=== PATIENT | female | born 1975 | race Caucasian/White ===

== ENCOUNTER → 2018-02-15 16:22 | Outpatient (CLI) | payer OTHER, SELFPAY ==
[2018-02-20 09:25] LABS: HPV Reflexed? NOT INDICATED
== END ==
PROVIDERS: Visit Provider Obstetrics & Gynecology
DX: N39.0 Urinary tract infection, site not specified (principal); Z12.4 Encounter for screening for malignant neoplasm of cervix
CPT/HCPCS: 87086; 88175; G0145

== ENCOUNTER → 2018-06-17 07:24 | Outpatient (CLI) | payer OTHER, SELFPAY ==
--- NOTE | 2018-06-17 07:09 | BI_ITS ---
MAMMOGRAPHY - BILATERAL SCREENING REASON FOR EXAM: Female, 42 years old. Routine annual screening examination. PERTINENT HISTORY: Grandmother with breast cancer. TECHNIQUE: Digital bilateral breast elian (3D mammographic acquisition) in the CC and MLO projections. 2-D mediolateral oblique (MLO) and craniocaudad (CC) views of both breasts were obtained. CAD: Full Field Digital Mammography with Computer Added Detection was performed. COMPARISON: Comparison is made with prior examination dated September 16, 2014. FINDINGS: Breast Composition: There are scattered areas of fibroglandular density. There are no dominant masses or suspicious calcifications. No other significant abnormalities are identified. There has been no significant change since the prior study. BI/SCREENING MAMM (CAD), BILAT IMPRESSION: Stable bilateral screening mammogram. Yearly follow-up mammogram recommended. (A) ASSESSMENT CATEGORY: BIRADS Category 1: Negative. A letter regarding these results will be sent to the patient by the facility within 30 days. Approximately 10% of breast cancers are not detected by mammography. A normal mammogram should not delay biopsy of a clinically suspicious abnormality. [id number] Electronically Signed: Nash Patrick, at 10:28 EDT , Service support ,
== END ==
PROVIDERS: Family Provider Nurse Practitioner Family; PCP Nurse Practitioner Family; Referring Provider Obstetrics & Gynecology; Visit Provider Obstetrics & Gynecology
DX: Z12.31 Encounter for screening mammogram for malignant neoplasm of breast (principal)
CPT/HCPCS: 77063; 77067

== ENCOUNTER → 2019-09-03 06:54 | Outpatient (CLI) | payer OTHER, SELFPAY ==
--- NOTE | 2019-09-02 16:40 | BI_ITS ---
MAMMOGRAPHY - BILATERAL SCREENING 3-D TOMOSYNTHESIS REASON FOR EXAM: Female, 43 years old. Routine screening PERTINENT HISTORY: BILAT SCREENING - FAM HX OF MATERNAL GRANDMOTHER @ AGE ? - NO PREV SURG''S. TECHNIQUE: 2-D mammograms and 3-D Tomosynthesis of the breast (s) were performed. CAD was performed. COMPARISON: 06/17/2018 FINDINGS: The breast composition is composed of scattered fibroglandular density. Scattered benign calcifications are seen. No dense spiculated masses or suspicious microcalcifications are identified. No architectural distortion is identified. There is no skin thickening or retraction. There has been no significant change since the prior study. BI/SCREEN MAMM (CAD) W/YUSUF BILAT IMPRESSION: No mammographic signs of malignancy. Routine yearly mammograms recommended. ASSESSMENT CATEGORY: BIRADS Category 1: Negative. A letter regarding these results will be sent to the patient by the facility within 30 days. FOLLOW UP RECOMMENDATION: Yearly follow up mammogram recommended. (A) Approximately 10% of breast cancers are not detected by mammography. A normal mammogram should not delay biopsy of a clinically suspicious abnormality. Electronically Signed: Fernando Powers MD at 7:51 EDT , Service support ,
== END ==
PROVIDERS: PCP Nurse Practitioner Family; Referring Provider Obstetrics & Gynecology; Visit Provider Obstetrics & Gynecology
DX: Z12.31 Encounter for screening mammogram for malignant neoplasm of breast (principal)
CPT/HCPCS: 77063; 77067

== ENCOUNTER → 2020-04-21 13:56 | Outpatient (CLI) | payer OTHER, SELFPAY ==
[2020-04-27 14:29] LABS: HPV Reflexed? NOT INDICATED
== END ==
PROVIDERS: PCP Nurse Practitioner Family; Visit Provider Obstetrics & Gynecology
DX: Z12.4 Encounter for screening for malignant neoplasm of cervix (principal)
CPT/HCPCS: 88175; G0145

== ENCOUNTER → 2020-10-13 06:58 | Outpatient (CLI) | payer OTHER, SELFPAY ==
--- NOTE | 2020-10-13 07:00 | BI_ITS ---
MAMMOGRAPHY - BILATERAL SCREENING REASON FOR EXAM: Female, 44 years old. Routine annual screening examination. PERTINENT HISTORY: Screening TECHNIQUE: Digital bilateral breast yusuf (3D mammographic acquisition) in the CC and MLO projections. 2-D mediolateral oblique (MLO) and craniocaudad (CC) views of both breasts were obtained. CAD: Full Field Digital Mammography with Computer Added Detection was performed. COMPARISON: 09/02/2019 FINDINGS: Breast Composition: Scattered There are no dominant masses or suspicious calcifications. No other significant abnormalities are identified. BI/SCRN MAMM (CAD)W/YUSUF BILAT IMPRESSION: Stable bilateral screening mammogram. Yearly follow-up mammogram recommended. (A) ASSESSMENT CATEGORY: BIRADS Category 1: Negative. A letter regarding these results will be sent to the patient by the facility within 30 days. Approximately 10% of breast cancers are not detected by mammography. A normal mammogram should not delay biopsy of a clinically suspicious abnormality. [id number] Electronically Signed: Aren Tipton DO at 15:45 EDT Tel , Service support ,
== END ==
PROVIDERS: PCP Nurse Practitioner Family; Referring Provider Obstetrics & Gynecology; Visit Provider Obstetrics & Gynecology
DX: Z12.31 Encounter for screening mammogram for malignant neoplasm of breast (principal)
CPT/HCPCS: 77063; 77067

== ENCOUNTER → 2021-10-25 | Outpatient (CLI) | payer OTHER, SELFPAY ==
[2021-10-25 17:32] LABS: Absolute Lymphocyte Count 3.36 X10^3/uL (0.83-4.51); Absolute Neutrophil Count 4.2 X10^3/uL (2.0-7.7); Basophil# 0.03 X10^3/uL; Basophil% 0.4 % (0-1); Eosinophil# 0.15 X10^3/uL; Eosinophils% 1.8 % (0-5); Hematocrit 38.5 % (37-47); Hemoglobin 13.2 g/dL (12.0-15.0); Lymphocyte # 3.36 X10^3/ul (0.83-4.51); Lymphocyte % 40.6 % (19-41); Mean Corp Hgb Conc 34.3 g/dL (32-36); Mean Corpuscular Hgb 30.4 pg (27.0-32.0); Mean Corpuscular Volume 88.7 fL (81-99); Mean Platelet Vol. 10.1 fl (6.2-12.0); Monocyte# 0.56 X10^3/uL; Monocyte% 6.8 % (0-10); NRBC Flagged by Analyzer 0 % (0-5); Neutrophil # 4.15 X10^3/uL (2.7-7.7); Neutrophil % 50.2 % (47-70); Platelet Count 356 K/mm3 (150-450); RBC Distribution Width CV 12.3 % (11.6-14.6); RBC Distribution Width SD 40.1 fl (35.1-43.9); Red Blood Count 4.34 M/mm3 (4.2-5.4); White Blood Count 8.3 K/mm3 (4.4-11.0)
[2021-10-25 17:39] LABS: Luteinizing Hormone 5.5 mIU/mL; Prolactin 10.2 ng/mL
== END | disposition home or self-care (01) ==
LOC: WOBLAB 15:43
PROVIDERS: PCP Nurse Practitioner Family; Visit Provider Obstetrics & Gynecology
DX: N93.9 Abnormal uterine and vaginal bleeding, unspecified (principal)
CPT/HCPCS: 36415; 83001; 83002; 84146; 85025

== ENCOUNTER → 2021-12-14 | Outpatient (CLI) | payer OTHER, SELFPAY ==
--- NOTE | 2021-12-14 07:42 | BI_ITS ---
MAMMOGRAPHY - BILATERAL SCREENING REASON FOR EXAM: Female, 45 years old. Routine annual screening examination. PERTINENT HISTORY: Grandmother with breast cancer. TECHNIQUE: Digital bilateral breast yusuf (3D mammographic acquisition) in the CC and MLO projections. 2-D mediolateral oblique (MLO) and craniocaudad (CC) views of both breasts were obtained. CAD: Full Field Digital Mammography with Computer Added Detection was performed. COMPARISON: Comparison is made with prior study of 10/13/2020 and 09/02/2019. FINDINGS: Breast Composition: There are scattered areas of fibroglandular density. There are no dominant masses or suspicious calcifications. No other significant abnormalities are identified. There has been no significant change since the prior study. BI/SCRN MAMM (CAD)W/YUSUF BILAT IMPRESSION: Stable bilateral screening mammogram. Yearly follow-up mammogram recommended. (A) ASSESSMENT CATEGORY: BIRADS Category 1: Negative. A letter regarding these results will be sent to the patient by the facility within 30 days. Approximately 10% of breast cancers are not detected by mammography. A normal mammogram should not delay biopsy of a clinically suspicious abnormality. [id number] Electronically Signed: Nash Patrick MD at 9:11 EDT ,
== END | disposition home or self-care (01) ==
LOC: OPBI 07:37
PROVIDERS: PCP Nurse Practitioner Family; Visit Provider Obstetrics & Gynecology
DX: Z12.31 Encounter for screening mammogram for malignant neoplasm of breast (principal); Z80.3 Family history of malignant neoplasm of breast
CPT/HCPCS: 77063; 77067

== ENCOUNTER 2022-01-24 09:47 | Observation (INO) | payer OTHER, SELFPAY ==
[2022-01-18 12:53] LABS: Absolute Lymphocyte Count 2.48 X10^3/uL (0.83-4.51); Absolute Neutrophil Count 5.2 X10^3/uL (2.0-7.7); Basophil# 0.03 X10^3/uL; Basophil% 0.4 % (0-1); Eosinophil# 0.16 X10^3/uL; Eosinophils% 1.9 % (0-5); Hematocrit 40.2 % (37-47); Hemoglobin 13.3 g/dL (12.0-15.0); Lymphocyte # 2.48 X10^3/ul (0.83-4.51); Lymphocyte % 29.6 % (19-41); Mean Corp Hgb Conc 33.1 g/dL (32-36); Mean Corpuscular Hgb 29.1 pg (27.0-32.0); Mean Platelet Vol. 9.9 fl (6.2-12.0); Monocyte# 0.51 X10^3/uL; Monocyte% 6.1 % (0-10); NRBC Flagged by Analyzer 0 % (0-5); Neutrophil # 5.17 X10^3/uL (2.7-7.7); Neutrophil % 61.8 % (47-70); Platelet Count 296 K/mm3 (150-450); RBC Distribution Width CV 12.6 % (11.6-14.6); RBC Distribution Width SD 40.9 fl (35.1-43.9); Red Blood Count 4.57 M/mm3 (4.2-5.4); White Blood Count 8.4 K/mm3 (4.4-11.0)
[2022-01-18 13:10] LABS: Magnesium 2.1 mg/dL (1.6-2.6)
--- NOTE | 2022-01-22 10:27 | HP.PCM_ITS ---
History and Physical Date of Admission: 01/24/22 MR#: [id number] Acct: [id number] Name:NOBLE VILLAFUERTE Rep #: [id number] : 1975 ? ? Provider: Dr. Kathy Barth, Age/Sex:? 46/F ? ? Location: [facility] [place] Status: Signed Intake Vital Signs ? 10/04/2109:15 12/28/2207:09 Height ? 5 ft 7 in Weight: ? 223 lb BMI ? 34.9 BP ? 100/62 Intake Visit Reasons:?Surgical consult, records coming from [place] Chief Complaint: surgical consult Vending Machine Host/Hostess Required: No Is patient in pain?: Yes Allergies No Known Allergies Allergy (Verified 12/24/13 09:14) Medications atorvastatin 10 mg tablet (Lipitor) 10 mg PO DAILY 12/27/21 [History Confirmed 1 ] colestipol 1 gram tablet 1 g PO ONCE 12/27/21 [History Confirmed 12/27/21] norgestimate 0.25 mg-ethinyl estradiol 35 mcg tablet (Sprintec (28)) 1 tab PO DAILY 12/27/21 [History Confirmed 12/27/21] Is last menstrual period known: Yes Last Menstrual Period: 12/11/21 Post menopausal: No Patient : No : [facility] Medical History?(Updated 12/27/21 @ 16:[address] Kathy Barth, DO) History of PCOS Hyperlipidemia Uterine fibroid Surgical History?(Updated 12/27/21 @ 08:15 by Deborah Mathis) delivery delivered History of hernia surgery Hx of appendectomy Hx of cholecystectomy Hx of LASIK Uterine fibroid Family History?(Updated 12/27/21 @ 08:13 by Deborah Mathis) Father Myocardial infarctionGrandmother Breast cancer Social History?(Updated 12/27/21 @ 08:14 by Deborah Mathis) Smoking Status:? Never smoker alcohol intake:? current details:? social substance use type:? does not use what type of physical activity do you participate in:? none seatbelt use:? always do you feel safe at home:? Yes additional social history:? 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 HPI Surgical consult, records coming from [place] Details: NOBLE DAVIDSON is a 46 year old ( sections) who presents for discussion about hysterectomy. She has heavy menses and has been diagnosed with an enlarged fibroid uterus by [employer] employee [employer] [facility]. She states that she has bleeding every other week and even some spotting in between. She takes sprintec ocps without relief. She has a surgical history of? delivery, hernia repair x 2 (one as a child, one as an adult on the anterior abdominal wall, appendectomy, cholecystectomy, LASIK, Dilation and curettage, and Uterine fibroid removal years prior to having her children. She states that she is ready to have her uterus removed. ultrasound shows 6 fibroids measuring all less than 3 cm and the size of the uterus in it's greatest dimension is 8 cm. Female Reproductive History Last Menstrual Period: 12/11/21 History ? ? ? 1 ? Elective abortions ? Hx Para ? ? ? 1 ? Spontaneous abortions ? Hx # Term Pregnancies ? Ectopic pregnancies ? Hx # Pregnancies ? Multiple births ? # of living children ? Past Pregnancies Del. Date Name GA/Weeks Outcome Route Bth Weight Infant Gen Labor Lgth Anesthesia Del Locatn Provider FOB Unknown 2010 ? live - full term C-s ection ? ROS Const ROS Unobtainable: All systems reviewed & are unremarkable except as noted in H Resp Resp: Reports system reviewed and no additional complaints, except as documented; Denies cough GI GI: Reports as per HPI Psych Psych: Reports system reviewed and no additional complaints, except as documented Exam Const General: cooperative, healthy appearing, comfortable and no acute distress Resp Effort & Inspection: normal respiratory effort Skin General: no rashes or lesions noted Psych Appearance: grossly normal Speech and Movement: speech and movement normal Coding Level of Care Code Off vis,new,level 5 Diagnoses Abnormal uterine bleeding? N93.9 Uterine fibroid? D25.9 Assessment and Plan Assessment and Plan (1) Abnormal uterine bleeding: ?Status:?Acute (2) Uterine fibroid: ?Status:?Acute ?Comment: 6 fibroids noted on ultrasound Plan After discussing the patient's diagnosis and treatment plan options, patient wishes to proceed with surgical management. The plan is to proceed with a total robotic hysterectomy, bilateral salpingectomy, and cystoscopy. Likely will also perform lysis of adhesions and may need to perform a left upper quadrant entry due to h/o abdominal surgeries. ? I have discussed with the patient the risks, benefits, and alternatives of the procedure which include but are not limited to risks of anesthesia, bleeding, infection, possible damage to bowel, bladder, or surrounding vasculature which could lead to additional surgery to evaluate any complications.? Patient agrees to procedure and wishes to proceed.? ACOG/uptodate references given for additional information regarding procedure.? 12/27/21 [id number] <Electronically signed by Kathy Barth DO> UPDATE- I have seen the patient and performed any clinically relevant updates to the history and physical exam. Kathy Barth, DO
[2022-01-24] VITALS (14 sets, daily range): BP systolic 126–147; BP diastolic 90–107; PULSE 82–100; RESP 14–20; TEMP 36–37; O2SAT 96–100; BMI 34.7
[2022-01-24] MEDS: Magnesium 1 GM over 15 mins IV (06:09)
[2022-01-24 06:14] LABS: Internal QC Validated? YES +Cl - CLEAR BKGD; Pregnancy, Urine Negative Negative
[2022-01-24] MEDS: Phenazopyridine 95 MG Tablet 190 MG PO (06:39)
[2022-01-24] MEDS: Gabapentin 600 MG Tablet PO (06:40)
[2022-01-24] MEDS: Celecoxib 200 MG Capsule 400 MG PO (06:40)
[2022-01-24] MEDS: Acetaminophen 500 MG Tablet 1000 MG PO ×3 (06:40→17:40)
[2022-01-24] MEDS: Enoxaparin 40 MG/0.4 ML Syringe SC (06:40)
[2022-01-24] MEDS: dexAMETHasone 10 MG/ML Vial 8 MG IV (06:41)
[2022-01-24] MEDS: Scopolamine 1mg/72hr Patch 1 PATCH TD (06:42)
[2022-01-24] MEDS: Insulin Lispro 100 UNIT/ML INSULN.PEN SC (06:42)
[2022-01-24] MEDS: Lactated Ringers 1,000 ML 40 ML IV (06:42)
[2022-01-24] MEDS: Cefazolin 2 GM in 0.9% Normal Saline 100 ML IV (07:24)
--- NOTE | 2022-01-24 07:29 | PCM.DC ---
Discharge Instructions Diet Discharge Diet: No restrictions Activity May resume sexual activity in: 6 weeks Weight Bearing Status: Full weight bearing Dressing / Incision Call your doctor if your incision/area has: Continuous Slow Oozing, Sudden Increased Bleeding, Increased Pain/ Swelling, Increased Redness and Foul Smelling Discharge Call your doctor if you observe: Fever of 101 or Higher, Using more than 1 pad per hour, Shortness of breath, Chest pain and Uncontrolled pain Suture Line Care: Avoid Pulling/Pushing and Avoid Pinching/Bending Remove Dressing in: 1 week (if present) Cleanse incision/area with: Soap & Water and Keep Dressing Clean & Dry Follow Up Care Please Follow Up With: Kathy Barth DO When: Call to make an appointment with your doctor for a postop visit in 2 and 6 weeks Test Results: Test results from this visit will be discussed in further detail at your follow-up appointment, if applicable. Discharge Plan Admission Primary Reason for Your Visit: robotic hysterectomy Attending Provider: Kathy Barth Primary Care Provider: Care Physician,No Primary Consulting Providers: Hamlet Sanders Discharge Orders/Prescriptions Prescriptions: New ibuprofen 800 mg tablet 800 mg PO Q8H PRN (Reason: pain) 7 Days Qty: 30 0RF oxycodone-acetaminophen [Percocet] 5-325 mg tablet 1 tab PO Q4H PRN (Reason: pain) 7 Days Qty: 30 0RF Continued atorvastatin [Lipitor] 10 mg tablet 10 mg PO QHS colestipol 1 gram tablet 1 g PO QHS Held acetaminophen [Tylenol] 325 mg Tablet 650 mg PO Q4H PRN (Reason: Pain) Hold Instructions: Resume on 02/07/22. Other Ambulatory Orders: ,Urine (Routine) Timeframe: [id number] Facility: [facility] - Location: Laboratory Ordered By: Dr. Kathy Barth Referrals / Follow Up: Care Physician,No Primary [Primary Care Provider] - Disposition Disposition (needs filled in before D/C Order can be placed): Home, Self Care
--- NOTE | 2022-01-24 07:30 | HYST_PTH ---
PATIENT: NOBLE DAVIDSON LOC: MS3 U#:[id number] AGE/SX: 46/F ROOM: MS312 RE01/24/[address]: Dr. Kathy Barth DO : 1975 BED: 1 DIS: 01/25/2022 SPEC #: [id number] RECD: 01/24/22 12:53 STATUS: MATT BELL #: [id number] JACK: 01/24/22 07:[address]: Kathy Barth DEPT: SURGICAL PATHOLOGY RECD BY: Minerva Tatum ENTERED: 01/24/22 13:17 SP TYPE: HYSTERECT OTHR DR: Dr. Hamlet Sanders MD No Primary Care Phys Tissues: Uterus, NOS Procedures: Surgery Specimen Level V HEADER OPERATION: ERAS, total hysterectomy, salpingectomy and cystoscopy PRE-OP DIAGNOSIS: None given TISSUE SUBMITTED: Uterus, cervix, bilateral fallopian tubes MICROSCOPIC DIAGNOSIS Uterus, cervix, bilateral fallopian tubes, hysterectomy and bilateral salpingectomy: Cervix ? focal cystic change. Endometrium ? secretory endometrium. Myometrium ? submucosal and subserosal leiomyomas (largest measuring 1.5 cm in greatest dimension). Bilateral fallopian tubes - no pathologic diagnosis. /SJ 01/25/22 MICROSCOPIC DESCRIPTION Slides are reviewed. GROSS DESCRIPTION Received in fixative is one container labeled with the patient's name and designated uterus. The specimen consists of a hysterectomy specimen consisting of uterus with cervix and attached left fallopian and detached right fallopian tube. The uterus with cervix weighs 54 gm and measures 8 x 5 x 3 cm. The serosal surface is smooth. The ectocervical mucosa is unremarkable. The external os is slit in contour. The endocervical canal measures3 cm in length and the endocervical mucosa is unremarkable. The triangular endometrial cavity measures 4 cm in length and 2 cm in width. The endometrium is hall glistening and measures 0.1 cm in thickness. Section of uterine wall reveal multiple sumucosal and subserosal nodular masses, largest mass is subserosal and measures 1.5 cm in greatest dimension. Uterine wall measures up to 2.0 cm in thickness. Right and left fallopian tubes each measure 6.5 cm in length and 0.5 cm in diameter. Fimbrial end is identified. Sections reveal unremarkable cut surfaces. Machine Tailer sections are submitted in 9 cassettes as follows: 1 - anterior cervix, 2 - posterior cervix, 3 & 4 - anterior uterine wall, 5 & 6 - posteror uterine wall, 7 p nodular masses, 8 ? right fallopian tube, 9 ? left fallopian tube. /STEVEN:sabrina 01/24/2022 TC:1 CPT: 94495
[2022-01-24 07:35] LABS: Bedside Glucose 188 mg/dL (74-106)
[2022-01-24] MEDS: Bupivacaine 0.25% 30 ML Vial (09:30)
--- NOTE | 2022-01-24 09:36 | PCM.OP.BLANK ---
Problems Associated Problem List Diagnoses (1) Abnormal uterine bleeding: (2) Uterine fibroid: Operative Report Date of Procedure: 01/24/22 Preoperative diagnosis: Menorrhagia, fibroid uterus, obesity, history of multiple abdominal surgeries Postoperative diagnosis: Menorrhagia, fibroid uterus, obesity, history of multiple abdominal surgeries Procedure: Total robotic hysterectomy bilateral salpingectomy, lysis of adhesions, and cystoscopy Surgeon: Dr. Kathy Barth DO Material Reprocessing Associate: DAYANARA Chong Intraoperative consultation: Dr. Darinel Delacruz MD Anesthesia: General endotracheal intubation Estimated blood loss: 100cc Urine output:600 Fluids given: 1100 cc crystalloid Drains: None Implanted material: None Complications: None Findings:8 cm size uterus, normal appearing ovaries and tubes. On exploration of the abdominal cavity the uterus, adnexa, bowel, and liver were found to be normal with exception of some trapped air between the greater and lesser omentum. Cystoscopy showed no evidence of leaking at approximately 250 cc of normal saline, positive ureteral orifices and jet flow are seen and no suture material was appreciated in the bladder. Specimens removed: Uterus and cervix, Bilateral tubes Reason for surgery: This is a 46-year-old who presented to my office with history of prior sections, history of myomectomy, history of cholecystectomy, ruptured appendix, and 2 abominal wall hernia repairs as well as obesity and heavy menses. After a long discussion about conservative versus surgical management the patient chose to proceed with hysterectomy. The planned procedure is for a robotic hysterectomy the risks benefits and alternatives were discussed with the patient the patient had a clear understanding of the procedure and a consent form was signed. Procedure: The patient was placed in the dorsal low lithotomy position and prepped and draped in the normal sterile fashion both abdominally and in the perineum. Her legs were placed in stirrups a Ogden catheter was inserted into the urethra without difficulty. A weighted speculum was placed in the vagina and a single-tooth tenaculum was used to grasp the anterior lip of the cervix. A Vcare uterine manipulator was inserted through the cervix without complication. It was then tied into place at the 2 and 10:00 locations on the cervix. Gloves were changed and attention was turned towards the abdomen. Due the multiple abdominal surgeries, the decision was made to enter the abdomen in the left upper quadrant. The patient had an OG tube placed and after marcaine injection an 8 mm incision was made followed by insertion of a 5 mm visiport trocar using a 5 mm laparoscope. Approximately 23 cm above the pubic symphysis in the midline, and after Marcaine injection, a [8] mm incision was made. An 8 mm trocar was inserted. Good abdominal placement was noted and no complications were appreciated. An air seal device was utilized to create pneumoperitoneum. At 12 cm lateral to the midline on the left and right sides 8 mm accessory ports were placed. Next a left upper quadrant 8 mm operating room assistant port site was placed. The patient was placed in steep Trendelenburg position. The robot was docked. The hysterectomy was initiated first by taking down the round ligament on each side using the vessel sealer device. The fallopian tubes were grasped and the underlying mesosalpinx was cauterized and cut. The broad ligament was then and taken down using the vessel sealer device. Next the bladder flap was taken down starting with dense adhesions from prior sections. These were removed without complication. This was done using monopolar cautery to the level of the cervical vaginal junction. After the bladder flap was created, uterine vessels were then isolated and cauterized using the vessel sealer device and EndoShears. At this point the uterine vessels were taken down further starting from the ascending branch, dissecting along the edges of the cervix to the level of the cervical vaginal junction with hemostasis appreciated. The cervical vaginal junction was then using monopolar cautery in a circumferential pattern across the superior aspect of the cervix. The specimen was delivered through the vagina and sent to pathology. The remaining vaginal cuff was then closed using OV lock suture. This was performed in a running technique. Excellent hemostasis was obtained and good closure was noted. Irrigation was then performed. All operative sites were noted to be hemostatic.There was noted to be some air bubbles present between the lesser and greater omentum and Dr. Delacruz from general surgery was called to examine the bowel and stomach. After momved the omentum from side to side and examined the transverse colon he came the conclusion that everything looked ok but to monitor the patient overnight. A cystoscopy was performed with a 70 degree cystoscope through the urethra into the bladder without complication. The bladder was instilled with approximately 250 cc of normal saline. Intraoperative images were made. Ureteral orifices and jets were identified. No suture material was appreciated in the bladder. The bladder was then drained and cystoscope was removed. The abdominal cavity was again examined using the laparoscope after the robot was undocked. All operative sites were noted to be hemostatic. The trochars were removed under direct visualization without complication and pneumoperitoneum was reduced. At this point the skin was then closed using 4-0 Monocryl subcuticular stitch and sealed with surgical glue. The patient tolerated the procedure well sponge lap and needle counts were correct x2 the patient was taken to the recovery room in stable condition. Multi Select Codes Urinary/Genital Urinary/Genital CPT Codes: 08075 TLH+BS/O <250gr uterus and Other Procedure See Report (lysis of adhesions )
[2022-01-24] MEDS: Ondansetron 4 MG/2 ML Vial IV (09:45)
[2022-01-24 10:55] LABS: Bedside Glucose 132 mg/dL (74-106)
[2022-01-24] MEDS: Ketorolac 30 MG/ML Syringe IV ×2 (11:09→17:40)
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
[2022-01-24] MEDS: oxyCODONE 5 MG Tablet PO (12:41)
[2022-01-24] MEDS: Docusate Sodium 100 MG Capsule PO ×2 (12:41→21:17)
[2022-01-24] MEDS: 0.9% Saline Lock 10 ML Syringe IV (17:40)
[2022-01-24] MEDS: Atorvastatin Calcium 10 MG Tablet PO (21:17)
[2022-01-24] MEDS: Colestipol 1 GM TABLET PO (21:17)
[2022-01-25] MEDS: Acetaminophen 500 MG Tablet 1000 MG PO ×3 (00:06→12:46)
[2022-01-25] MEDS: 0.9% Saline Lock 10 ML Syringe IV ×2 (00:06→05:46)
[2022-01-25] MEDS: Ketorolac 30 MG/ML Syringe IV ×3 (00:07→12:47)
[2022-01-25 02:43] VITALS: BP 137/87; PULSE 100; RESP 18; TEMP 36.8; O2SAT 96
[2022-01-25 02:46] VITALS: BP 137/87; PULSE 100; RESP 18; TEMP 36.8; O2SAT 96
[2022-01-25 06:52] LABS: Hematocrit 38.8 % (37-47); Hemoglobin 12.7 g/dL (12.0-15.0); Mean Corp Hgb Conc 32.7 g/dL (32-36); Mean Corpuscular Hgb 28.8 pg (27.0-32.0); Mean Platelet Vol. 9.6 fl (6.2-12.0); Platelet Count 340 K/mm3 (150-450); RBC Distribution Width CV 13.1 % (11.6-14.6); RBC Distribution Width SD 42.1 fl (35.1-43.9); Red Blood Count 4.41 M/mm3 (4.2-5.4); White Blood Count 14.6 K/mm3 (4.4-11.0)
[2022-01-25 08:00] VITALS: RESP 18
[2022-01-25 08:45] VITALS: BP 121/85; PULSE 88; RESP 18; TEMP 36.2; O2SAT 98
[2022-01-25 09:00] VITALS: BP 121/85; PULSE 88; RESP 18; TEMP 36.2; O2SAT 98
[2022-01-25] MEDS: Docusate Sodium 100 MG Capsule PO (09:36)
[2022-01-25] MEDS: Ensure Plus High Protein 120 ML LIQUID PO (09:36)
--- NOTE | 2022-01-25 09:54 | PCM.PN.OB ---
Subjective Subjective pt is walking around room. She has her street clothes on and passing gas, having normal urinary function and asking for breakfast and when she may go home Objective Data Objective Data Vital Signs: Vital Signs Temp Pulse Resp BP Pulse Ox O2 Del Method O2 Flow Rate 97.2 F L 88 18 121/85 H 98 Room Air 4 01/25/22 08:45 01/25/22 08:45 01/25/22 08:45 01/25/22 08:45 01/25/22 08:45 01/25/22 08:45 01/25/22 02:46 Oxygen Flow Rate (L/min) 4 Oxygen Delivery Method Room Air Weight: 221 lb 12.56 oz Body Mass Index (BMI) 34.7 Intake & Output: Intake and Output for Last 24 Hours 01/23/22 01/24/22 01/25/22 23:59 23:59 23:59 Intake Total 1668 / 1668 600 / 600 Output Total 950 / 950 Balance 718 / 718 600 / 600 Lab / Micro Data Result Diagrams: 01/25/22 06:10 Labs: Laboratory Results - last 24 hr 01/24/22 10:35: POC Glucose 132 H 01/25/22 06:10: WBC 14.6 H, RBC 4.41, Hgb 12.7, Hct 38.8, MCV 88.0, MCH 28.8, MCHC 32.7, RDW Std Deviation 42.1, RDW Coeff of Sylvain 13.1, Plt Count 340, MPV 9.6 ROS Constitutional Constitutional: Reports systems reviewed and no addt'l complaints, except as documented Cardiovascular Cardiovascular: Denies chest pain, dizziness, dyspnea or irregular heart rhythm Respiratory/Chest Respiratory/Chest: Denies cough, pain on inspiration or shortness of breath at rest Gastrointestinal Gastrointestinal: Denies abdominal pain, nausea or vomiting Genitourinary Genitourinary: Denies burning urination Musculoskeletal Musculoskeletal: Denies muscle cramps, muscle spasms or muscle weakness Neurologic Neurologic: Denies confusion, dizziness, headache(s) or lack of coordination Psychiatric Psychiatric: Denies anxiety, behavioral changes or depression Physical Exam HEENT normocephalic Resp normal respiratory effort and normal air movement GI soft to palpation, non-tender and non-distended GI Narrative: incisions are clean, dry, intact and non-tender. Rectal Exam: other Other Details: Incision is clean, dry, and intact no CVA tenderness Extremity normal to inspection General Extremity: edema bilateral (trace ) Assessment & Plan (1) Status post hysterectomy: PLAN: Plan patient is s/p robotic hyst luq entry for mesh in umbilicus and multiple surgeries- POD 1 1. routine ERAS protocol postop care- increase ambulation, encourage oral intake and oral control of pain. lovenox and scds for dvt prophylaxis, patient stable for discharge to home likely after repeat cbc this afternoon. Had a slight increase in WBC count. if stable will send home.
[2022-01-25 12:17] LABS: Absolute Lymphocyte Count 3.87 X10^3/uL (0.83-4.51); Absolute Neutrophil Count 8.3 X10^3/uL (2.0-7.7); Basophil# 0.02 X10^3/uL; Basophil% 0.2 % (0-1); Eosinophil# 0.12 X10^3/uL; Eosinophils% 0.9 % (0-5); Hemoglobin 12.4 g/dL (12.0-15.0); Lymphocyte # 3.87 X10^3/ul (0.83-4.51); Lymphocyte % 29.3 % (19-41); Mean Corp Hgb Conc 32.6 g/dL (32-36); Mean Corpuscular Volume 88.8 fL (81-99); Mean Platelet Vol. 9.6 fl (6.2-12.0); Monocyte# 0.84 X10^3/uL; Monocyte% 6.3 % (0-10); NRBC Flagged by Analyzer 0 % (0-5); Neutrophil # 8.32 X10^3/uL (2.7-7.7); Neutrophil % 62.8 % (47-70); Platelet Count 323 K/mm3 (150-450); RBC Distribution Width CV 13.2 % (11.6-14.6); Red Blood Count 4.28 M/mm3 (4.2-5.4); White Blood Count 13.2 K/mm3 (4.4-11.0)
[2022-01-25] MEDS: oxyCODONE 5 MG Tablet PO (12:45)
[2022-01-25 13:21] VITALS: BP 122/83; PULSE 88; RESP 18; TEMP 36.8; O2SAT 100
== END 2022-01-25 13:39 | disposition home or self-care (01) ==
LOC: SDC 14:18 → MS3 14:18
PROVIDERS: Anesthesiology; Admitting Provider Obstetrics & Gynecology; Referring Provider Obstetrics & Gynecology; Visit Provider Obstetrics & Gynecology
PROC: 0UT90ZZ Resection of Uterus, Open Approach (ICD-10-PCS; CPT 58571; principal; 2022-01-24 07:10)
DX: D25.0 Submucous leiomyoma of uterus (principal); N92.0 Excessive and frequent menstruation with regular cycle; E66.9 Obesity, unspecified; N93.9 Abnormal uterine and vaginal bleeding, unspecified; D25.2 Subserosal leiomyoma of uterus; Z79.899 Other long term (current) drug therapy; E78.5 Hyperlipidemia, unspecified; Z68.34 Body mass index [BMI] 34.0-34.9, adult
CPT/HCPCS: 58571; S2900; 00840; 36415; 81025; 82962; 83735; 85025; 85027; 86850; 86900; 86901; 88307; 96374; 96376; 99218; 99251; J7120; A4216; G0378; G0463; J2405; J3475

== ENCOUNTER → 2022-06-14 | Outpatient (CLI) | payer OTHER, BC, SELFPAY | END | disposition home or self-care (01) | PROVIDERS: Visit Provider Advanced Practice Midwife | DX: N89.8 Other specified noninflammatory disorders of vagina (principal) | CPT/HCPCS: 87070; 87205 ==

== ENCOUNTER → 2023-03-26 | Outpatient (CLI) | payer OTHER, BC, SELFPAY ==
--- NOTE | 2023-03-26 07:25 | BI_ITS ---
MAMMOGRAPHY - BILATERAL SCREENING REASON FOR EXAM: Female, 47 years old. Routine annual screening examination. PERTINENT HISTORY: Grandmother with breast cancer. TECHNIQUE: Digital bilateral breast yusuf (3D mammographic acquisition) in the CC and MLO projections. 2-D mediolateral oblique (MLO) and craniocaudad (CC) views of both breasts were obtained. CAD: Full Field Digital Mammography with Computer Added Detection was performed. COMPARISON: Comparison is made with prior study December 14, 2021 and October 13, 2020. FINDINGS: Breast Composition: There are scattered areas of fibroglandular density. There are no dominant masses or suspicious calcifications. Stable small benign-appearing bilateral axillary lymph nodes. No other significant abnormalities are identified. There has been no significant change since the prior study. BI/SCRN MAMM (CAD)W/YUSUF BILAT IMPRESSION: Stable bilateral screening mammogram. Yearly follow-up mammogram recommended. (A) ASSESSMENT CATEGORY: BIRADS Category 2: Benign. A letter regarding these results will be sent to the patient by the facility within 30 days. Approximately 10% of breast cancers are not detected by mammography. A normal mammogram should not delay biopsy of a clinically suspicious abnormality. [id number] Electronically Signed: Nash Patrick MD at 8:29 EST ,
--- OUTSIDE RECORDS SUMMARY | 2023-03-26 07:38 | XMS RPT_ITS | CCD ---
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 Name Role Phone Rylie Kaura August Unavailable Unavailab le Latimer, Megan August Unavailable Unavailab le Latimer, Megan August Unavailable Unavailab le Latimer, Megan August Unavailable Unavailab le Latimer, Megan August Unavailable Unavailab le Latimer, Megan August Unavailable Unavailab le Thomae, Zackary R Unavailable Unavailable Latimer, Megan August Unavailable Unavailab le Thomae, Zackary R Unavailable Unavailable Thomae, Zackary R Unavailable Unavailable Latimer, Megan August Unavailable Unavailab le Thomae, Zackary R Unavailable Unavailable Erin Robbins Unavailable Unavailable Latimer, Megan August Unavailable Unavailab le Latimer, Megan Unavailable Unavailable Latimer, Megan J Unavailable Unavailable Latimer, Megan J Unavailable [phone] Unavailable Unavailable Ms. Megan Kaur August Primary Care Unava ilable Vincent, Ms. Guzman August Referring Unava ilable Dr. Taylor Gibbons Attending Unav ailable Vincent, Ms. Youngblooda August Primary Care Unava ilable Vincent, Ms. Youngblooda August Attending Unava ilable Vincent, Ms. Guzman August Referring Unava ilable Vincent, Ms. Guzman August Referring Unava ilable Letty Orantes Attending Unavailabl e Vincent, Ms. Youngblooda August Primary Care Unava ilable Chance Newman Referring Unavailable Letty Orantes Admitting Unavailable Letty Orantes Attending Unavailable Vincent, . Megan Beck Primary Care Unava rosendo Kaur, Ms. Megan Beck Primary Care Unava rosendo Alexandre, Ms. Leelee Lopes Attending Unavailable Nichole Tamayo Unavailable Nichole Bolaños Primary Care Provider [phone] ZACKARY ZENDEJAS Attending Unavailable ZACKARY ZENDEJAS Referring Unavailable NICHOLE TAMAYO Primary Care Unavailable NICHOLE TAMAYO Attending Unavailable NICHOLE TAMAYO Primary Care Unavailable BRIAN BE Attending UnavailNICHOLE Braun Primary Care Unavailable Allergies Allergy Classification Reported Allergen(s) Allergy Type Date of Onset Reaction(s) Facility Dairy (not specified as lactose intolerance) (3 sources) cow milk Food Allergy [facility] Work Phone: (1 source) Milk Products; Translations: [Milk Products] Propensity to adverse reactions to food (disorder) [facility] Repository (12 sources) cow milk; Translations: [MILK] Allergy to substance (finding) 3 [facility] 2 Repository (3 sources) cow milk allergenic extract Drug Allergy 3 [facility] Medications Current Medications Medication Drug Class(es) Dates Sig (Normalized) Sig (Original) atorvastatin 10 mg oral tablet (8 sources) HMG-CoA Reductase Inhibitor Start: 10-28-2021 End: 06-21-2022 take 1 tablet by mouth once daily atorvastatin (Lipitor) 10 mg tablet Indications: Mild hyperlipidemia Take 1 tablet (10 mg) by mouth once daily. 90 tablet 3 06/21/2022 Active colestipol hydrochloride 1000 mg oral tablet (15 sources) Bile Acid Sequestrant Start: 10-04-2020 End: 06-21-2022 take 1 tablet by mouth once daily as needed for diarrhea colestipol (Colestid) 1 gram tablet Indications: Bile salt-induced diarrhea Take 1 tablet (1 g) by mouth once daily. As needed for diarrhea 90 tablet 3 06/21/2022 Active nitrofurantoin, macrocrystals 25 mg / nitrofurantoin, monohydrate 75 mg oral capsule (4 sources) Nitrofuran Antibacterial Start: 12-11-2019 End: 10-04-2020 take 1 capsule by mouth once daily Nitrofurantoin Monohyd Macro 100 MG Oral Capsule TAKE 1 CAPSULE EVERY 12 HOURS DAILY. Quantity: 14 Refills: 0 Ordered: 11-Dec-2019 Megan Marsh Start : 11-Dec-2019 End : 04-Oct-2020 Complete Completed/Discontinued Medications Medication Drug Class(es) Dates Sig (Normalized) Sig (Original) busPIRone hydrochloride 5 mg oral tablet (6 sources) Start: 10-04-2020 take 1 tablet by mouth three times daily busPIRone HCl - 5 MG Oral Tablet Take 1 tablet three times daily Quantity: 90 Refills: 1 Ordered: 04-Oct-2020 Megan Marsh Start : 04-Oct-2020 Active calcium chloride 0.0014 meq/ml / potassium chloride 0.004 meq/ml / sodium chloride 0.103 meq/ml / sodium lactate 0.028 meq/ml injectable solution (2 sources) Start: 01-19-2023 End: 01-20-2023 lactated Ringer's infusion Ethinyl Estradiol / norgestimate (3 sources) Progestin, Estrogen End: 06-21-2022 take 1 tablet by mouth once daily norgestimate-ethin yl estradioL (Sprintec, 28,) 0.25-35 mg-mcg tablet Take 1 tablet by mouth once daily. 0 06/21/2022 Discontinued (Therapy completed) Problems Active Problems Problem Classification Problem Date Documented Da te Episodic/Chronic Anxiety disorders (14 sources) Anxiety; Translations: [Anxiety state, unspecified] Onset: 06-19-2022 06-19-2022 Chronic Disorders of lipid metabolism (17 sources) Hyperlipidemia; Translations: [Other and unspecified hyperlipidemia] Onset: 06-19-2022 06-21-2022 Chronic Genitourinary symptoms and ill-defined conditions (4 sources) Increased frequency of urination; Translations: [Urinary frequency] Episodic Menstrual disorders (8 sources) Irregular periods; Translations: [Irregular menstrual cycle] Onset: 06-19-2022 06-19-2022 Chronic Other endocrine disorders (2 sources) Polycystic ovary syndrome; Translations: [Polycystic ovarian syndrome] Onset: 10-25-2021 07-02-2022 Chronic Other gastrointestinal disorders (17 sources) Non-infective diarrhea; Translations: [Other specified intestinal malabsorption] Onset: 06-19-2022 06-25-2022 Chronic Other gastrointestinal disorders (4 sources) Other intestinal malabsorption; 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] Onset: 06-19-2022 Chronic Other gastrointestinal disorders (2 sources) Non-infective diarrhea; 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] Episodic Other lower respiratory disease (8 sources) H/O: respiratory disease; Translations: [Personal history of other diseases of respiratory system] Episodic Other nutritional; endocrine; and metabolic disorders (2 sources) Obesity; Translations: [Morbid (severe) obesity due to excess calories] Onset: 06-25-2022 06-25-2022 Chronic Other nutritional; endocrine; and metabolic disorders (2 sources) Severe obesity; Translations: [Morbid (severe) obesity due to excess calories] Onset: 06-25-2022 06-25-2022 Chronic Other screening for suspected conditions (not mental disorders or infectious disease) (12 sources) Patient encounter status; Translations: [Screening for diabetes mellitus] Onset: 06-21-2022 06-21-2022 Episodic Other upper respiratory disease (14 sources) Seasonal allergic rhinitis; Translations: [Allergic rhinitis, cause unspecified] Onset: 06-19-2022 06-19-2022 Chronic Residual codes; unclassified (11 sources) History finding; Translations: [Other specified conditions influencing health status] Episodic Unclassified (1 source) Contact with and (suspected) exposure to COVID-19; Translations: [Contact with and (suspected) exposure to COVID-19] Onset: 11-06-2021 Unclassified (3 sources) Personal history of COVID-19; Translations: [Personal history of COVID-19] Onset: 04-29-2021 Past or Other Problems Problem Classification Problem Date Documented Da te Episodic/Chronic Acute bronchitis (2 sources) Acute bronchitis, unspecified; Translations: [Acute bronchitis, unspecified] Onset: 07-28-2022 Episodic Allergic reactions (20 sources) Allergy to food; Translations: [Allergy to other foods] Onset: 06-19-2022 Resolved: 06-25-2022 06-19-2022 Episodic Appendicitis and other appendiceal conditions (7 sources) Acute appendicitis; Translations: [Acute appendicitis without mention of peritonitis] Onset: 11-06-2021 Resolved: 06-19-2022 06-19-2022 Episodic Miscellaneous mental health disorders (12 sources) Adjustment insomnia; Translations: [Transient disorder of initiating or maintaining sleep] Onset: 06-19-2022 06-19-2022 Episodic Nonspecific chest pain (4 sources) Other chest pain; Translations: [Other chest pain] Onset: 04-29-2021 Episodic Other and unspecified benign neoplasm (16 sources) Leiomyoma; Translations: [Other benign neoplasm of connective and other soft tissue, site unspecified] Onset: 06-19-2022 06-19-2022 Episodic Other upper respiratory infections (2 sources) Acute sinusitis, unspecified; Translations: [Acute sinusitis, unspecified] Onset: 07-28-2022 Episodic Residual codes; unclassified (9 sources) H/O: urinary anomaly; Translations: [Personal history of other specified urinary system disorders] Resolved: 10-19-2020 Episodic Unclassified (2 sources) History finding; Translations: [No pertinent past medical history] Unclassified (1 source) Personal history of COVID-19; Translations: [Personal history of COVID-19] Onset: 04-29-2021 Unclassified (3 sources) Onset: 06-21-2022 Resolved: 07-28-2022 06-21-2022 Urinary tract infections (13 sources) Acute urinary tract infection; Translations: [Urinary tract infection, site not specified] Resolved: 10-19-2020 Episodic Results Test Name Value Interpretation Reference Range Facil ity Vital Signs Date Time Vital Sign Value Performing Clinician Facility 01-19-2023 16:02-0500 Diastolic blood pressure 85 mm[Hg] Zackary Zendejas DO Work Phone: [facility] 01-19-2023 16:02-0500 Heart rate 87 /min Zackary Zendejas DO Work Phone: [facility] 01-19-2023 16:02-0500 Respiratory rate 20 /min Zackary Zendejas DO Work Phone: [facility] 01-19-2023 16:02-0500 SaO2% (BldA) [Mass fraction] 98 % Zackary Jerrydaisy DO Work Phone: [facility] 01-19-2023 16:02-0500 Systolic blood pressure 117 mm[Hg] Zackary Jerryae DO Work Phone: [facility] 01-19-2023 14:09-0500 Body height 170.2 cm Zackary Jerryae DO Work Phone: [facility] 01-19-2023 14:09-0500 Body mass index (BMI) [Ratio] 35.58 kg/m2 Zackary Thomae DO Work Phone: [facility] 01-19-2023 14:09-0500 Body temperature 97.9 [degF] Zackary Jerryae DO Work Phone: [facility] 01-19-2023 14:09-0500 Body weight 103.06 kg Zackary Jerryae DO Work Phone: [facility] 06-21-2022 11:25-0400 Body height 170.2 cm Nichole Tamayo MOWING MACHINE OPERATOR-[employer]LE [employer]RAKE [employer] Work Phone: [facility] 06-21-2022 11:25-0400 Body mass index (BMI) [Ratio] 36.34 kg/m2 Nichole Tamayo MOWING MACHINE OPERATOR-AUTOM[employer]BILE [employer]RAKE [employer]DER Work Phone: [facility] 06-21-2022 11:25-0400 Body weight 105.23 kg Nichole Tamayo MOWING MACHINE OPERATOR-AUT[employer]LE [employer]KE [employer]DER Work Phone: [facility] 06-21-2022 11:25-0400 Diastolic blood pressure 76 mm[Hg] Nichole Tamayo MOWING MACHINE OPERATOR-AUTOM[employer]LE [employer]KE [employer]DER Work Phone: [facility] 06-21-2022 11:25-0400 Heart rate 75 /min Nichole Tamayo MOWING MACHINE OPERATOR-AUT[employer]LE [employer]KE [employer]DER Work Phone: [facility] 06-21-2022 11:25-0400 SaO2% (BldA) [Mass fraction] 97 % Nichole Tamayo MOWING MACHINE OPERATOR-AUTOMOBILE BRAKE [employer]DER Work Phone: [facility] 06-21-2022 11:25-0400 Systolic blood pressure 104 mm[Hg] Nichole Tamayo MOWING MACHINE OPERATOR-AUTOMOBILE [employer]RAKE [employer]DER Work Phone: [facility] 11-22-2021 08:34-0400 Body height 170.18 cm Megan Gallowayter Work Phone: [facility] Work Phone: 11-22-2021 08:34-0400 Body mass index (BMI) [Ratio] 34.97 kg/m2 Megan Gallowayter Work Phone: [facility] Work Phone: 11-22-2021 08:34-0400 Body surface area Derived from formula 2.12 m2 Megan Gabino Latimer Work Phone: [facility] Work Phone: 11-22-2021 08:34-0400 Body weight 101.27 kg Megan Gallowayter Work Phone: [facility] Work Phone: 11-22-2021 08:34-0400 Diastolic blood pressure 86 mm[Hg] Megan Gallowayter Work Phone: [facility] Work Phone: 11-22-2021 08:34-0400 Heart rate 76 /min Megan Gallowayter Work Phone: [facility] Work Phone: 11-22-2021 08:34-0400 Systolic blood pressure 120 mm[Hg] Megan Tillmanpster Work Phone: [facility] Work Phone: 10-03-2021 08:25-0400 Body height 170.18 cm Meganhelio Gallowayter Work Phone: [facility] Work Phone: 10-03-2021 08:25-0400 Body mass index (BMI) [Ratio] 35.25 kg/m2 Megan J Latimer Work Phone: [facility] Work Phone: 10-03-2021 08:25-0400 Body surface area Derived from formula 2.13 m2 Megan Kaur Work Phone: [facility] Work Phone: 10-03-2021 08:25-0400 Body weight 102.09 kg Megan Kaur Work Phone: [facility] Work Phone: 10-03-2021 08:25-0400 Diastolic blood pressure 78 mm[Hg] Megan Kaur Work Phone: [facility] Work Phone: 10-03-2021 08:25-0400 Heart rate 88 /min Megan Kaur Work Phone: [facility] Work Phone: 10-03-2021 08:25-0400 SaO2% (BldA) [Mass fraction] 98 % Megan Kaur Work Phone: [facility] Work Phone: 10-03-2021 08:25-0400 Systolic blood pressure 112 mm[Hg] Megan Kaur Work Phone: [facility] Work Phone: 12-01-2020 09:06-0400 Body mass index (BMI) [Ratio] 35.71 kg/m2 Megan Kaur Work Phone: [facility] Work Phone: 12-01-2020 09:06-0400 Body surface area Derived from formula 2.14 m2 Megan J Vincent Work Phone: [facility]Nawswgmsgk[facility]otk [facility] Work Phone: 12-01-2020 09:06-0400 Body weight 103.42 kg Megan J Latimer Work Phone: [facility]fragdewqo[facility]Cxqbs [facility] Work Phone: 12-01-2020 09:06-0400 Diastolic blood pressure 78 mm[Hg] Megan Lloyd Latimer Work Phone: [facility]ok[facility]zk[facility] Work Phone: 12-01-2020 09:06-0400 Heart rate 78 /min Megan J Latimer Work Phone: [facility]Vjxkzsfcfs[facility]Szmql [facility] Work Phone: 12-01-2020 09:06-0400 SaO2% (BldA) [Mass fraction] 99 % Megan J Latimer Work Phone: [facility]Jacrk[facility]ks[facility]Uwfgr [facility] Work Phone: 12-01-2020 09:06-0400 Systolic blood pressure 126 mm[Hg] Megan Lloyd Latimer Work Phone: CG[facility]Lyevqjpodn-Jcguj [facility] Work Phone: 10-19-2020 07:42-0400 Body height 170.18 cm Megan Kaur Work Phone: [facility] Work Phone: 10-19-2020 07:42-0400 Body mass index (BMI) [Ratio] 35.08 kg/m2 Megan Kaur Work Phone: [facility] Work Phone: 10-19-2020 07:42-0400 Body surface area Derived from formula 2.12 m2 Megan Kaur Work Phone: [facility] Work Phone: 10-19-2020 07:42-0400 Body temperature 96.1 [degF] Megan Kaur Work Phone: [facility] Work Phone: 10-19-2020 07:42-0400 Body weight 101.61 kg Megan Kaur Work Phone: [facility] Work Phone: 10-19-2020 07:42-0400 Diastolic blood pressure 72 mm[Hg] Megan Kaur Work Phone: [facility] Work Phone: 10-19-2020 07:42-0400 Heart rate 87 /min Megan Kaur Work Phone: [facility] Work Phone: 10-19-2020 07:42-0400 SaO2% (BldA) [Mass fraction] 96 % Megan Kaur Work Phone: [facility] Work Phone: 10-19-2020 07:42-0400 Systolic blood pressure 110 mm[Hg] Megan Kaur Work Phone: [facility] Work Phone: 10-04-2020 07:39-0400 Body height 170.18 cm Megan Kaur Work Phone: [facility] Work Phone: 10-04-2020 07:39-0400 Body mass index (BMI) [Ratio] 35.1 kg/m2 Megan Kaur Work Phone: [facility] Work Phone: 10-04-2020 07:39-0400 Body surface area Derived from formula 2.12 m2 Megan Kaur Work Phone: [facility] Work Phone: 10-04-2020 07:39-0400 Body temperature 97.6 [degF] Megan Kaur Work Phone: [facility] Work Phone: 10-04-2020 07:39-0400 Body weight 101.67 kg Megan Kaur Work Phone: [facility] Work Phone: 10-04-2020 07:39-0400 Diastolic blood pressure 68 mm[Hg] Megan Kaur Work Phone: [facility] Work Phone: 10-04-2020 07:39-0400 Heart rate 80 /min Megan Gabino Vincent Work Phone: [facility] Work Phone: 10-04-2020 07:39-0400 SaO2% (BldA) [Mass fraction] 97 % Megan Kaur Work Phone: [facility] Work Phone: 10-04-2020 07:39-0400 Systolic blood pressure 100 mm[Hg] Megan J Latimer Work Phone: [facility] Work Phone: 12-11-2019 16:50-0400 BMI (Body Mass Index) 35.15 kg/m2 Megan Kaur [facility] Work Phone: 12-11-2019 16:50-0400 Body Temperature 97.3 [degF] Megan Kaur [facility] Work Phone: 12-11-2019 16:50-0400 Body weight 101.8 kg Megan Kaur [facility] Work Phone: 12-11-2019 16:50-0400 BP Diastolic 74 mm[Hg] Megan Kaur [facility] Work Phone: 12-11-2019 16:50-0400 BP Systolic 120 mm[Hg] Megan Kaur [facility] Work Phone: 12-11-2019 16:50-0400 BSA (Body Surface Area) 2.12 m2 Megan Kaur [facility] Work Phone: 12-11-2019 16:50-0400 Height 170.18 cm Megan Kaur [facility] Work Phone: 12-11-2019 16:50-0400 Pulse (Heart Rate) 70 /min Megan Kaur [facility] Work Phone: 12-11-2019 16:50-0400 Pulse Oximetry 99 % Megan Kaur [facility] [employer] Phone: Encounters Encounter Date Encounter Type Care Provider Facility Start: 01-19-2023 End: 01-20-2023 ambulatory ZACKARY ZENDEJAS [facility] Start: 01-19-2023 End: 01-19-2023 Subsequent hospital visit by physician Zackary Zendejas DO Work Phone: [facility] Procedures Date Procedure Procedure Detail Performing Clinician Start: 01-19-2023 DISCHARGE PATIENT ZACKARY ZENDEJAS Start: 01-19-2023 PLACE IN OUTPATIENT/HOSPITAL AMBULATORY SURGERY ZACKARY ZENDEJAS Start: 01-19-2023 PULSE OXIMETRY, SPOT SOURAV FIGUEREDO Start: 01-19-2023 Colonoscopy flx dx w /collj spec when pfrmd Zackary Zendejas DO Work Phone: Start: 01-19-2023 PULSE OXIMETRY, SPOT Da tricia Zendejas DO Work Phone: Start: 01-19-2023 Colonoscopy Zackary aguilar DO Work Phone: Start: 07-03-2022 Mammography Zackary aguilar DO Work Phone: Start: 06-29-2022 Lipid 1996 panel - S layne or Plasma Zackary Zendejas DO Work Phone: Start: 06-21-2022 CBC W Auto Different ial panel - Blood NICHOLE TAMAYO Start: 06-21-2022 Comprehensive metabo lic 2000 panel - Serum or Plasma NICHOLE TAMAYO Start: 06-21-2022 Hemoglobin A1c/Hemoglobin.total in Blood NICHOLE TAMAYO Start: 06-21-2022 Lipid panel NICHOLE WORTHY Tho Start: 12-14-2021 Mammography Zackary aguilar DO Work Phone: Start: 11-06-2021 Antibody screen Chance adams Plan of Treatment Date Care Activity Detail Author Start: 01-16-2033 Screening for malignant neoplasm of colon [facility] Start: 12-28-2027 Zoster Vaccines (1 of 2) Zoster Vaccines (1 of 2) [facility] Start: 06-30-2027 Lipid panel Lipid Panel [facility] Start: 06-29-2025 Diabetes mellitus screening Diabetes Screening [facility] Start: 07-04-2023 Screening for malignant neoplasm of breast Mammogram [facility] Start: 06-30-2023 Hemoglobin A1c measurement Diabetes: Hemoglobin A1C [facility] Start: 06-23-2023 Yearly Adult Physical Yearly Adult Physical [facility] Start: 04-21-2023 Screening for malignant neoplasm of cervix Pap Smear [facility] Start: 11-10-2022 Influenza vaccination [facility] Start: 06-21-2022 End: 06-22-2023 CBC W Auto Differential panel - Blood CBC and Auto Differential Lab Routine Well adult exam Expected: 06/21/2022 (Approximate), Expires: 06/22/2023 [facility] Work Phone: Payers Date Payer Category Payer Unknown [id number] 2022 Unknown [id number] 2017 Unknown 2011 Private Health Insurance 2011 Private Health Insurance [id number] 1977 Unknown [id number] 2.16.84 [id number] 1977 Unknown [id number] 2.16.84 [id number] 1977 Unknown [id number] 2.16.84 [id number] 1977 Unknown [id number] 2.16.84 [id number] 1977 Unknown [id number] 2.16. [id number] 1977 Unknown [id number] 2.16. [id number] 1977 Unknown [id number] 2.16. [id number] 1977 Unknown [id number] 2.16.8 [id number] 1977 Unknown [id number] 2.16.8 [id number] 1977 Unknown [id number] 2.16.84 [id number] 1977 Unknown [id number] 2.16.84 [id number] 1977 Unknown [id number] 2.16.84 [id number] Unknown [id number] Social History Date Type Detail Facility Assertion Tobacco smoking consumption unknown (finding) [facility] Work Phone: Start: 06-21-2022 End: 01-19-2023 Consumes alcohol occasionally Consumes alcohol occasionally [facility] Work Phone: Start: 06-21-2022 Tobacco smoking status WYIS Never smoked tobacco [facility] Work Phone: Start: 06-21-2022 Tobacco use and exposure Smokeless tobacco non-user [facility] Work Phone: Start: 06-21-2022 End: 01-19-2023 Tobacco use panel [facility] Work Phone: Start: 1975 Sex Assigned At Not on file [facility] Work Phone: Start: 06-11-2022 End: 01-19-2023 Exposure to SARS-CoV-2 (event) Not sure [facility] Start: 01-19-2023 Alcohol intake Current drinker of alcohol (finding) [facility] Work Phone: Start: 01-17-2023 Alcohol Comment occasional [facility] Work Phone: Functional Status Date Assessment Result Facility NEGATED: Highlighted row Functional performance Functional status health issues are not documented Disease [facility] Work Phone: Mental Status Date Assessment Result Facility NEGATED: Highlighted row Cognitive function [Interpretation] Cognitive status health issues are not documented Disease [facility] Phone: Clinical Notes 01-16-2021 to 01-19-2023 Discharge InstructionsZackary Zendejas DO - 01/19/2023 3:00 PM ESTZackary Zendejas, DO - 01/19/2023 3:00 PM ESTPre-Sedation Documentation - Zackary Zendejas DO - 01/19/2023 3:00 PM ESTPatient Instructions Note Date & Type Note Facility 01-19-2023 Hospital Discharge instructions Luz Marina Rod RN - 01/19/2023 3:32 PM EST Patient Instructions after a Colonoscopy The anesthetics, sedatives or narcotics which were given to you today will be acting in your body for the next 24 hours, so you might feel a little sleepy or groggy. This feeling should slowly wear off. Carefully read and follow the instructions. You received sedation today: - Do not drive or operate any machinery or power tools of any kind. - No alcoholic beverages today, not even beer or wine. - Do not make any important decisions or sign any legal documents. - No over the counter medications that contain alcohol or that may cause drowsiness. - Do not make any important decisions or sign any legal documents. While it is common to experience mild to moderate abdominal distention, gas, or belching after your procedure, if any of these symptoms occur following discharge from the GI Lab or within one week of having your procedure, call the [facility] to be advised whether a visit to your nearest Urgent Care or Emergency Department is indicated. Take this paper with you if you go. - If you develop an allergic reaction to the medications that were given during your procedure such as difficulty breathing, rash, hives, severe nausea, vomiting or lightheadedness. - If you experience chest pain, shortness of breath, severe abdominal pain, fevers and chills. -If you develop signs and symptoms of bleeding such as blood in your spit, if your stools turn black, tarry, or bloody - If you have not urinated within 8 hours following your procedure. - If your IV site becomes painful, red, inflamed, or looks infected. If you received a biopsy/polypectomy/sphincterotomy the following instructions apply below: __ Do not use Aspirin containing products, non-steroidal medications or anti-coagulants for one week following your procedure. (Examples of these types of medications are: Advil, Arthrotec, Aleve, Coumadin, Ecotrin, Heparin, Ibuprofen, Indocin, Motrin, Naprosyn, Nuprin, Plavix, Vioxx, and Voltarin, or their generic forms. This list is not all-inclusive. Check with your physician or pharmacist before resuming medications.) __ Eat a soft diet today. Avoid foods that are poorly digested for the next 24 hours. These foods would include: nuts, beans, lettuce, red meats, and fried foods. Start with liquids and advance your diet as tolerated, gradually work up to eating solids. __ Do not have a Barium Study or Enema for one week. Your physician recommends the additional following instructions: -You have a contact number available for emergencies. The signs and symptoms of potential delayed complications were discussed with you. You may return to normal activities tomorrow. -Resume your previous diet. -Continue your present medications. -We are waiting for your pathology results. -Your physician has recommended a repeat colonoscopy (date to be determined after pending pathology results are reviewed) for surveillance based on pathology results. -The findings and recommendations have been discussed with you. -The findings and recommendations were discussed with your family. - Please see Medication Reconciliation Form for new medication/medications prescribed. If you experience any problems or have any questions following discharge from the GI Lab, please call: Nurse Signature Date Patient/Responsible Green Party Signature Date documented in this encounter [facility] Work Phone: 01-19-2023 History and physical note History Of Present Illness Margarette Fry is a 47 y.o. female presenting with bile salt diarrhea presents for screening colonoscopy. Past Medical History Past Medical History: Diagnosis Date Appendicitis, acute 06/19/2022 Hyperlipidemia Other specified health status No pertinent past medical history Personal history of other diseases of the respiratory system History of sinusitis Personal history of other specified conditions 12/11/2019 History of urinary frequency Urinary tract infection, site not specified 12/22/2019 Acute UTI Surgical History Past Surgical History: Procedure Laterality Date HYSTERECTOMY OTHER SURGICAL HISTORY 12/11/2019 Corneal lasik OTHER SURGICAL HISTORY 12/11/2019 Tonsillectomy with adenoidectomy OTHER SURGICAL HISTORY 12/11/2019 Uterine myomectomy OTHER SURGICAL HISTORY 11/22/2021 Appendectomy laparoscopic OTHER SURGICAL HISTORY 11/22/2021 Dilation and curettage OTHER SURGICAL HISTORY 11/22/2021 section OTHER SURGICAL HISTORY 11/22/2021 Cholecystectomy OTHER SURGICAL HISTORY 11/22/2021 Hernia repair laparoscopic Social History She reports that she has never smoked. She has never used smokeless tobacco. She reports current alcohol use. No history on file for drug use. Family History Family History Problem Relation Name Age of Onset Asthma Mother Heart attack Father Hypertension Other Obesity Other Prostate cancer Other Breast cancer Other Allergies Milk Review of Systems Constitutional: Negative. HENT: Negative. Eyes: Negative. Respiratory: Negative. Cardiovascular: Negative. Endocrine: Negative. Genitourinary: Negative. Neurological: Negative. Hematological: Negative. Physical Exam Vitals and nursing note reviewed. Constitutional: Appearance: Normal appearance. HENT: Head: Normocephalic. Mouth/Throat: Mouth: Mucous membranes are moist. Pharynx: Oropharynx is clear. Eyes: Conjunctiva/sclera: Conjunctivae normal. Pupils: Pupils are equal, round, and reactive to light. Cardiovascular: Pulses: Normal pulses. Heart sounds: Normal heart sounds. Pulmonary: Effort: Pulmonary effort is normal. Breath sounds: Normal breath sounds. Abdominal: General: Abdomen is flat. Bowel sounds are normal. Palpations: Abdomen is soft. Musculoskeletal: Cervical back: Normal range of motion and neck supple. Skin: General: Skin is warm and dry. Neurological: General: No focal deficit present. Mental Status: She is alert and oriented to person, place, and time. Psychiatric: Behavior: Behavior normal. Last Recorded Vitals There were no vitals taken for this visit. Relevant Results Assessment/Plan Active Problems: There are no active Hospital Problems. Problem List Items Addressed This Visit Bile salt-induced diarrhea - Primary Other Visit Diagnoses Colon cancer screening Relevant Orders Colonoscopy Screening; Average Risk Patient I spent minutes in the professional and overall care of this patient. Zackary Zendejas DO [facility] Work Phone: 01-19-2023 History and physical note History Of Present Illness Margarette Fry is a 47 y.o. female presenting with bile salt diarrhea presents for screening colonoscopy. Past Medical History Past Medical History: Diagnosis Date Appendicitis, acute 06/19/2022 Hyperlipidemia Other specified health status No pertinent past medical history Personal history of other diseases of the respiratory system History of sinusitis Personal history of other specified conditions 12/11/2019 History of urinary frequency Urinary tract infection, site not specified 12/22/2019 Acute UTI Surgical History Past Surgical History: Procedure Laterality Date HYSTERECTOMY OTHER SURGICAL HISTORY 12/11/2019 Corneal lasik OTHER SURGICAL HISTORY 12/11/2019 Tonsillectomy with adenoidectomy OTHER SURGICAL HISTORY 12/11/2019 Uterine myomectomy OTHER SURGICAL HISTORY 11/22/2021 Appendectomy laparoscopic OTHER SURGICAL HISTORY 11/22/2021 Dilation and curettage OTHER SURGICAL HISTORY 11/22/2021 section OTHER SURGICAL HISTORY 11/22/2021 Cholecystectomy OTHER SURGICAL HISTORY 11/22/2021 Hernia repair laparoscopic Social History She reports that she has never smoked. She has never used smokeless tobacco. She reports current alcohol use. No history on file for drug use. Family History Family History Problem Relation Name Age of Onset Asthma Mother Heart attack Father Hypertension Other Obesity Other Prostate cancer Other Breast cancer Other Allergies Milk Review of Systems Constitutional: Negative. HENT: Negative. Eyes: Negative. Respiratory: Negative. Cardiovascular: Negative. Endocrine: Negative. Genitourinary: Negative. Neurological: Negative. Hematological: Negative. Physical Exam Vitals and nursing note reviewed. Constitutional: Appearance: Normal appearance. HENT: Head: Normocephalic. Mouth/Throat: Mouth: Mucous membranes are moist. Pharynx: Oropharynx is clear. Eyes: Conjunctiva/sclera: Conjunctivae normal. Pupils: Pupils are equal, round, and reactive to light. Cardiovascular: Pulses: Normal pulses. Heart sounds: Normal heart sounds. Pulmonary: Effort: Pulmonary effort is normal. Breath sounds: Normal breath sounds. Abdominal: General: Abdomen is flat. Bowel sounds are normal. Palpations: Abdomen is soft. Musculoskeletal: Cervical back: Normal range of motion and neck supple. Skin: General: Skin is warm and dry. Neurological: General: No focal deficit present. Mental Status: She is alert and oriented to person, place, and time. Psychiatric: Behavior: Behavior normal. Last Recorded Vitals There were no vitals taken for this visit. Relevant Results Assessment/Plan Active Problems: There are no active Hospital Problems. Problem List Items Addressed This Visit Bile salt-induced diarrhea - Primary Other Visit Diagnoses Colon cancer screening Relevant Orders Colonoscopy Screening; Average Risk Patient I spent minutes in the professional and overall care of this patient. Zackary Zendejas DO documented in this encounter [facility] Work Phone: 01-19-2023 Miscellaneous Notes Patient: Margarette Fry Pre-sedation Evaluation: Sedation necessary for: Analgesia Requesting service: Endoscopy History of Present Illness: Colonoscopy for screening Past Medical History: Diagnosis Date Appendicitis, acute 06/19/2022 Hyperlipidemia Other specified health status No pertinent past medical history Personal history of other diseases of the respiratory system History of sinusitis Personal history of other specified conditions 12/11/2019 History of urinary frequency Urinary tract infection, site not specified 12/22/2019 Acute UTI Principle problems: Patient Active Problem List Diagnosis Date Noted Class 2 severe obesity due to excess calories with serious comorbidity and body mass index (BMI) of 36.0 to 36.9 in adult ([facility] [place]) 06/25/2022 Adjustment insomnia 06/19/2022 Allergic rhinitis, seasonal 06/19/2022 Anxiety 06/19/2022 Bile salt-induced diarrhea 06/19/2022 Fibroid 06/19/2022 Menstrual irregularity 06/19/2022 Mild hyperlipidemia 06/19/2022 Reaction to food 06/19/2022 Polycystic ovary syndrome 10/25/2021 Allergies: Allergies Allergen Reactions 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 90 tablet 3 colestipol (Colestid) 1 gram tablet Take 1 tablet (1 g) by mouth once daily. As needed for diarrhea 90 tablet 3 Current Facility-Administered Medications Medication Dose Route Frequency Provider Last Rate Last Admin lactated Ringer's infusion 20 mL/hr intravenous Continuous Zackary Zendejas DO Past Surgical History: has a past surgical history that includes Other surgical history (12/11/2019); Other surgical history (12/11/2019); Other surgical history (12/11/2019); Other surgical history (11/22/2021); Other surgical history (11/22/2021); Other surgical history (11/22/2021); Other surgical history (11/22/2021); Other surgical history (11/22/2021); and Hysterectomy. Recent sedation/surgery (24 hours) No Review of Systems: Please check all that apply: No significant medical history test completed prior to procedure on any menstruating female: none NPO guidelines met: Yes Physical Exam Airway Mallampati: II Cardiovascular - normal exam Dental Pulmonary - normal exam Plan ASA 2 Moderate documented in this encounter [facility] Work Phone: 01-19-2023 Note Formatting of this n ote is different from the original. Patient: Margarette Fry Pre-sedation Evaluation: Sedation necessary for: Analgesia Requesting service: Endoscopy History of Present Illness: Colonoscopy for screening Past Medical History: Diagnosis Date Appendicitis, acute 06/19/2022 Hyperlipidemia Other specified health status No pertinent past medical history Personal history of other diseases of the respiratory system History of sinusitis Personal history of other specified conditions 12/11/2019 History of urinary frequency Urinary tract infection, site not specified 12/22/2019 Acute UTI Principle problems: Patient Active Problem List Diagnosis Date Noted Class 2 severe obesity due to excess calories with serious comorbidity and body mass index (BMI) of 36.0 to 36.9 in adult ([facility] [place]) 06/25/2022 Adjustment insomnia 06/19/2022 Allergic rhinitis, seasonal 06/19/2022 Anxiety 06/19/2022 Bile salt-induced diarrhea 06/19/2022 Fibroid 06/19/2022 Menstrual irregularity 06/19/2022 Mild hyperlipidemia 06/19/2022 Reaction to food 06/19/2022 Polycystic ovary syndrome 10/25/2021 Allergies: Allergies Allergen Reactions 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 90 tablet 3 colestipol (Colestid) 1 gram tablet Take 1 tablet (1 g) by mouth once daily. As needed for diarrhea 90 tablet 3 Current Facility-Administered Medications Medication Dose Route Frequency Provider Last Rate Last Admin lactated Ringer's infusion 20 mL/hr intravenous Continuous Zackary Zendejas DO Past Surgical History: has a past surgical history that includes Other surgical history (12/11/2019); Other surgical history (12/11/2019); Other surgical history (12/11/2019); Other surgical history (11/22/2021); Other surgical history (11/22/2021); Other surgical history (11/22/2021); Other surgical history (11/22/2021); Other surgical history (11/22/2021); and Hysterectomy. Recent sedation/surgery (24 hours) No Review of Systems: Please check all that apply: No significant medical history test completed prior to procedure on any menstruating female: none NPO guidelines met: Yes Physical Exam Airway Mallampati: II Cardiovascular - normal exam Dental Pulmonary - normal exam Plan ASA 2 Moderate [facility] Work Phone: 01-19-2023 Note Formatting of this n ote is different from the original. Patient: Margarette Fry Pre-sedation Evaluation: Sedation necessary for: Analgesia Requesting service: Endoscopy History of Present Illness: Colonoscopy for screening Past Medical History: Diagnosis Date Appendicitis, acute 06/19/2022 Hyperlipidemia Other specified health status No pertinent past medical history Personal history of other diseases of the respiratory system History of sinusitis Personal history of other specified conditions 12/11/2019 History of urinary frequency Urinary tract infection, site not specified 12/22/2019 Acute UTI Principle problems: Patient Active Problem List Diagnosis Date Noted Class 2 severe obesity due to excess calories with serious comorbidity and body mass index (BMI) of 36.0 to 36.9 in adult ([facility] [place]) 06/25/2022 Adjustment insomnia 06/19/2022 Allergic rhinitis, seasonal 06/19/2022 Anxiety 06/19/2022 Bile salt-induced diarrhea 06/19/2022 Fibroid 06/19/2022 Menstrual irregularity 06/19/2022 Mild hyperlipidemia 06/19/2022 Reaction to food 06/19/2022 Polycystic ovary syndrome 10/25/2021 Allergies: Allergies Allergen Reactions 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 90 tablet 3 colestipol (Colestid) 1 gram tablet Take 1 tablet (1 g) by mouth once daily. As needed for diarrhea 90 tablet 3 Current Facility-Administered Medications Medication Dose Route Frequency Provider Last Rate Last Admin lactated Ringer's infusion 20 mL/hr intravenous Continuous Zackary Zendejas DO Past Surgical History: has a past surgical history that includes Other surgical history (12/11/2019); Other surgical history (12/11/2019); Other surgical history (12/11/2019); Other surgical history (11/22/2021); Other surgical history (11/22/2021); Other surgical history (11/22/2021); Other surgical history (11/22/2021); Other surgical history (11/22/2021); and Hysterectomy. Recent sedation/surgery (24 hours) No Review of Systems: Please check all that apply: No significant medical history test completed prior to procedure on any menstruating female: none NPO guidelines met: Yes Physical Exam Airway Mallampati: II Cardiovascular - normal exam Dental Pulmonary - normal exam Plan ASA 2 Moderate [facility] Work Phone: 06-25-2022 Evaluation + Plan note Associated Problem(s): Bile salt-induced diarrhea Takes Colestipol 1 gm daily as needed for diarrhea. refilled [facility] Work Phone: 06-25-2022 Miscellaneous Notes Associated Problem(s): Bile salt-induced diarrhea Takes Colestipol 1 gm daily as needed for diarrhea. refilled Associated Problem(s): Mild hyperlipidemia Atorvastatin 10 mg daily- refilled Lipid panel ordered documented in this encounter [facility] Work Phone: 06-25-2022 Evaluation + Plan note Associated Problem(s): Mild hyperlipidemia Atorvastatin 10 mg daily- refilled Lipid panel ordered [facility] Work Phone: 04-12-2023 History of Present illness Narrative Subjective Patient ID: Margarette Fry is a 46 y.o. female who presents routine check up; med review and refills; lab orders to be faxed to [phone] [facility]. HPI Rekha returns for routine follow up. She is requesting wellness lab work ordered. Has no concerns today. Hyperlipidemia: currently on Atorvastatin. Diarrhea post cholecystomy: Takes Colestid as needed. Colon cancer screen: will need in December. 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 Mammogram: done in December. Review of Systems Constitutional: Negative for fatigue. Respiratory: Negative for chest tightness and shortness of breath. Cardiovascular: Negative for chest pain, palpitations and leg swelling. Gastrointestinal: Negative for abdominal pain, blood in stool, constipation, diarrhea, nausea and vomiting. Genitourinary: Negative for dysuria. Musculoskeletal: Negative for arthralgias and myalgias. Skin: Negative for color change. Neurological: Negative for dizziness, light-headedness and headaches. Objective Vitals: 06/21/22 1125 BP: 104/76 BP Location: Right arm Pulse: 75 SpO2: 97% Weight: 105 kg (232 lb) Height: 1.702 m (5' 7 ) Physical Exam Vitals and nursing note reviewed. Constitutional: Appearance: Normal appearance. Cardiovascular: Rate and Rhythm: Normal rate and regular rhythm. Heart sounds: Normal heart sounds. Pulmonary: Effort: Pulmonary effort is normal. Breath sounds: Normal breath sounds. Neurological: Mental Status: She is alert and oriented to person, place, and time. Psychiatric: Mood and Affect: Mood normal. Behavior: Behavior normal. Thought Content: Thought content normal. Judgment: Judgment normal. Assessment/Plan Diagnoses and all orders for this visit: Well adult exam - CBC and Auto Differential; Future Mild hyperlipidemia - atorvastatin (Lipitor) 10 mg tablet; Take 1 tablet (10 mg) by mouth once daily. - Lipid Panel; Future - Comprehensive Metabolic Panel; Future Bile salt-induced diarrhea - colestipol (Colestid) 1 gram tablet; Take 1 tablet (1 g) by mouth once daily. As needed for diarrhea Screening for diabetes mellitus (DM) - Hemoglobin A1C; Future Class 2 severe obesity due to excess calories with serious comorbidity and body mass index (BMI) of 36.0 to 36.9 in adult ([facility] [place]) Problem List Items Addressed This Visit Bile salt-induced diarrhea Takes Colestipol 1 gm daily as needed for diarrhea. refilled Relevant Medications colestipol (Colestid) 1 gram tablet Mild hyperlipidemia Atorvastatin 10 mg daily- refilled Lipid panel ordered Relevant Medications atorvastatin (Lipitor) 10 mg tablet Other Relevant Orders Lipid Panel Comprehensive Metabolic Panel Class 2 severe obesity due to excess calories with serious comorbidity and body mass index (BMI) of 36.0 to 36.9 in adult ([facility] [place]) Other Visit Diagnoses Well adult exam - Primary Relevant Orders CBC and Auto Differential Screening for diabetes mellitus (DM) Relevant Orders Hemoglobin A1C Follow up in 1 year for wellness exam. Will get Mammogram record from [place]. documented in this encounter [facility] Work Phone: 06-21-2022 Instructions JOSEFINA Bethea - 06/21/2022 11:20 AM EDT BMI was above normal measurement. Current weight: 232 lbs. (105 kg) Weight change since last visit (-) denotes wt loss Weight loss needed to achieve BMI 25: Lbs Weight loss needed to achieve BMI 30: Lbs Provided instructions on dietary changes Provided instructions on exercise Advised to Increase physical activity documented in this encounter [facility] Work Phone: 11-06-2021 Note Send Summary: Discharge Summary Providers: Provider RoleProvider Name ReferringChance Newman AttendingLetty Orantes Melinda J Note Recipients: Chance Newman MD Harpster, Melinda J, APRN-CNP - [id number] [] Discharge: Summary: Admission Date: .05-Nov-2021 23:05:00 Discharge Date: 06-Nov-2021 Attending Physician at Discharge: Letty Orantes Admission Reason: Acute appendicitis Final Discharge Diagnoses: Acute appendicitis Procedures: Date: 06-Nov-2021 14:46:00 Procedure Name: 1. Appendectomy Laparoscopic Condition at Discharge: Satisfactory Disposition at Discharge: .Home Vital Signs: T [id number] [id number]% Date/Time11/06 10: 10: 10: 10: 10:23 Range(36C - 37C ) (85 - 104 ) (16 - 18 ) (115 - 131 )/ (72 - 91 ) (95% - 100% ) Highest temp of 37 C was recorded at 11/06 10:23 Date: Weight/Scale Type:Height: 06-Nov-2021 03:72876.7 kg / slu382.1 cm Physical Exam: Awake still somnolent postop lungs were clear heart was regular rate and rhythm abdomen was soft with appropriate tenderness. Dressings dry and intact. Hospital Course: Patient was admitted overnight and after discussion we took her to the OR. Was uneventful appendectomy and once her pain was controlled and she was tolerating a diet she was discharged home Surg History: Status post laparoscopic appendectomy: Discharge Information: and Continuing Care: Lab Results - Pending: Surgical Pathology Drawn at 06-Nov-2021 13:49:00 Radiology Results - Pending: None Discharge Instructions: Activity: activity as tolerated. May shower.. May not drive while taking narcotics. No pushing, pulling, or lifting objects greater than 20 pounds for 4 week(s). Nutrition/Diet: regular Wound Care: Cover With: no dressing, leave open to air Follow Up Appointments: Follow-Up Appointment 01: Physician/Dept/Service: Caryl Call to Schedule in: 2 weeks Discharge Medications: Home Medication atorvastatin 10 mg oral tablet - 1 tab(s) orally once a day Sprintec 0.25 mg-35 mcg oral tablet - 1 tab(s) orally once a day NITROFURANTOIN MCR 100 MG CAP - 1 cap(s) orally 2 times a day PRN Medication oxyCODONE 5 mg oral tablet - 1 tab(s) orally every 6 hours, As Needed -for pain colestipol 1 g oral tablet - 1 tab(s) orally once a day, As Needed - for diarrhea DNR Status: Code StatusCode Status order at time of discharge: Full Code Electronic Signatures: Letty Orantes) (Signed 06-Nov-2021 15:03) Authored: Send Summary, Summary Content, Medical History, Ongoing Care, DNR Status, Note Completion Last Updated: 06-Nov-2021 15:03 by Letty Orantes) [facility] 11-06-2021 Note PROCEDURE DETAILS Preoperative Diagnosis: acute appendicitis Postoperative Diagnosis: acute appendicitis Surgeon: Letty Orantes Resident/Fellow/Other Sat Math Tutor: None of these were associated with this case Procedure: 1. Appendectomy Laparoscopic Anesthesia: Pablo Lobato Estimated Blood Loss: minimal Findings: acute non perforated retrocecal appendicitis Specimens(s) Collected: yes, appendix Complications: mome Operative Report: Patient presented to the emergency room with a 1 day history of right lower quadrant abdominal pain. CT scan of the abdomen and pelvis was done which was consistent with acute appendicitis. After discussing the alternatives she opted to proceed with laparoscopic appendectomy. The procedure risks and potential complications including but not limited to bleeding, infection, reaction to the anesthetic, stroke, PA and/or were all explained. We also discussed the possibility of needing to convert to an open procedures or infections or obstructions requiring future procedures or operations. All questions were answered and she asked us to proceed. Patient was brought to the operating room and placed supine upon the operating room table. SCD devices were in place. Operative huddle was done. After the uneventful administration of a general anesthetic, the abdomen was prepped and draped in the usual sterile fashion. Timeout was done. The port sites were locally infiltrated with quarter percent solution of Marcaine. Supraumbilical midline incision was made and carried down to the fascia which was sharply divided in the midline. We were at the upper edge of her mesh. We divided the mesh and entered the peritoneal cavity under direct vision. Omentum was stuck up towards the mesh and this was for the most part bluntly dissected down. Lateral stay sutures of 0 Vicryl were placed and the Silverio cannula introduced. The abdomen was insufflated and under direct vision a 5 mm suprapubic port was placed. We then moved the camera to the supra pubic port site and placed the left lower quadrant port site. The remaining omentum was either bluntly taken down from the mesh or using the LigaSure. The cecum was then grasped and elevated. Lateral inflammatory adhesions to the abdominal wall were taken down bluntly. The appendix was quite long and it was retrocecal and fused to the mesentery. The patient was then rotated to the left and a [place] dissector passed near the base of the appendix and the mesentery opened up. The ЕКАТЕРИНА stapler was then passed and fired. The base of the appendix was grasped and elevated and the mesoappendix taken off near the appendix using the LigaSure. As we neared the distal half lateral adhesions and peritoneum were freed up with the LigaSure. We then started our dissection from the tip of the appendix and removed it in a bag. The right lower quadrant was irrigated and aspirated. No bleeding was noted. The patient was placed in Trendelenburg in an attempt to see her pelvic organs but these were not readily visible and so we stopped. The 5 mm trochars were removed under direct vision and no bleeding was noted. The umbilical port was closed with a running suture of 0 Vicryl. Skin was approximated using inverted sutures of 4-0 Monocryl. The skin was closed with Dermabond and Steri-Strips. Patient tolerated the procedure well and was sent to the recovery area in stable condition. All needle and sponge counts were correct. Attestation: Note Completion: Attending AttestationI performed the procedure without a resident Electronic Signatures: Letty Orantes) (Signed 06-Nov-2021 14:54) Authored: Post-Operative Note, Chart Review, Note Completion Last Updated: 06-Nov-2021 14:54 by Letty Orantes) [facility] 11-06-2021 Note History of Present I llness: /Lactating: Are You no (1) Are You Currently Breastfeedingno (1) HPI: MARGARETTE FRY is a 45 year old Female with a 1 day history of right hypogastric abdominal pain. CT scan of the abdomen and pelvis was done which was consistent with acute appendicitis. Her stomach had contents within it so she was admitted overnight for antibiotics. Her pain is improved but still present. She would like to proceed with appendectomy. She has been afebrile with stable vital signs and only taking Tylenol and Motrin for discomfort. Past surgical history laparoscopic cholecystectomy, umbilical hernia repair, Past medical history hypercholesterolemia heavy menses currently undergoing work-up Medications please see chart Allergies please see chart Social History: Social History: Smoking Statusnever smoker (1) Alcohol Useoccasionally(1) Drug Usedenies (1) Drug 2 Usedenies (1) Allergies: No Known Allergies: Medications Prior to Admission: Admission Medication Reconciliation has not been completed for this patient. Review of Systems: Constitutional: NEGATIVE: Fever Eyes: NEGATIVE: Vision Loss/ Change Respiratory: NEGATIVE: Productive Cough Cardiac: NEGATIVE: Chest Pain Gastrointestinal: POSITIVE: Nausea, Abdominal Pain Genitourinary: NEGATIVE: Hematuria Musculoskeletal: NEGATIVE: Weakness Neurological: NEGATIVE: Seizures Objective: Objective Information: T PRBPMAPSpO2 [id number]% Date/Time11/06 10: 10: 10: 10: 10:23 Range(36C - 37C ) (85 - 104 ) (16 - 18 ) (115 - 131 )/ (72 - 91 ) (95% - 100% ) Highest temp of 37 C was recorded at 11/06 10:23 Pain reported at 11/06 7:40: 4 = Moderate Weights 11/06 3:40: Weight in kg (Weight (kg)) 101.7 11/06 3:40: Weight in lbs ((lbs)) 224.2 11/06 3:40: BMI (kg/m2) (BMI (kg/m2)) 35.148 Physical Exam by System: Constitutional: Awake alert no acute distress Eyes: Anicteric Respiratory/Thorax: Clear Cardiovascular: Regular rate Gastrointestinal: Soft with right hypogastric and right lower quadrant tenderness. Obese Musculoskeletal: No edema Neurological: Nonfocal Psychological: Appropriate Medications: Medications: Continuous Medications 1. Lactated Ringers Infusion: 1000 mL IntraVenous 2. Lactated Ringers Infusion: 1000 mL IntraVenous Scheduled Medications 1. Acetaminophen: 650 mg Oral Every 6 Hours 2. Heparin SubCutaneous: 5000 unit(s) SubCutaneous Every 8 Hours 3. Ibuprofen: 600 mg Oral Every 6 Hours 4. Iohexol (Omnipaque 350-Radiology Contrast): 150 mL IntraVenous Push Once 5. Piperacillin - Tazobactam 3.375 gram/Iso-osmotic 50 mL Premix IVPB: 50 mL IntraVenous Piggyback Every 6 Hours PRN Medications 1. Ondansetron Injectable: 4 mg IntraVenous Push Every 4 Hours 2. oxyCODONE Immediate Release: 5 mg Oral Every 4 Hours 3. Sodium Chloride 0.9% Injectable Flush: 10 mL IntraVenous Flush Every 8 Hours and as Needed Recent Lab Results: Results: CBC: 11/06/2021 00:05 \ Hgb / \ 11.9 L / WBC Plt 18.3 H 254 / Hct \ / 35.7 L \ RBC: 4.07 MCV: 88 Neutrophil %: 77.1 CMP: 11/06/2021 00:05 NA+ Cl- BUN / 139 105 11 / Glucose 103 H K+ HCO3- Creat \ 4.1 28 0.75 \ \ T Bili / \ 0.3 / AST x ---- x ALT 9 x ---- x 7 / Alk P \ / 58 \ Calcium : 8.7 Anion Gap : 10 Albumin : 3.7 T Protein : 6.4 Coagulation: 11/06/2021 02:44 PT / 11.9 / -------< INR < 1.0 PTT\ \ Radiology Results: Results: Impression: 1. Findings compatible with acute appendicitis. The appendix extends toward the right upper quadrant, and there is adjacent mesenteric stranding, without evidence of fluid collection or kae perforation. 2. Small right adnexal cyst, which may be a normal functional cyst. CT Abdomen and Pelvis with IV Contrast [Nov 06 2021 2:29AM] Assessment and Plan: Assessment: Discussed the alternatives of antibiotics and observation versus proceeding with laparoscopic appendectomy including the risks and potential complications of each. She wished to proceed with laparoscopic appendectomy. The procedure risks and potential complications including but not limited to bleeding, infection, reaction to the anesthetic, stroke, PA and/or were all discussed. We discussed the possible need to convert to an open procedure or infections or obstructions requiring future operations. She does have mesh in her umbilical region from previous hernia repair and we discussed the challenges with the periumbilical port. All questions were answered and she asked us to proceed. Plan of Care Reviewed With: Plan of C (more content not included)... [facility] 01-16-2021 History of Present illness Narrative She presents today for follow up of abdominal pain and post gallbladder diarrhea. It had improved when she was taking the medicine every day the first week. She forgot 2 days this weekend and felt sick on Sunday. She is going to try and make a stronger effort at taking it every morning. she has appt with Urologist Physician in November. The buspar is making her have vivid dreams and affecting her sleep. We reviewed her labs, she has mild hyperlipidemia-likely will improve with consistent colestipol regimen. [facility] [address] [facility] Work Phone: 01-16-2021 History of Present illness Narrative She presents today for follow up of abdominal pain and post gallbladder diarrhea. It had improved when she was taking the medicine every day the first week. She forgot 2 days this weekend and felt sick on Sunday. She is going to try and make a stronger effort at taking it every morning. she has appt with Urologist Physician in November. The buspar is making her have vivid dreams and affecting her sleep. We reviewed her labs, she has mild hyperlipidemia-likely will improve with consistent colestipol regimen. [employer] [facility] [address] [facility] Work Phone: documented in this encounter [facility] Work Phone: Evaluation note* Diagnosis Bile salt-induced diarrhea- Primary Colon cancer screening Special screening for malignant neoplasms, colon documented in this encounter [facility] Work Phone: Evaluation note* Diagnosis Bile salt-induced diarrhea- Primary Colon cancer screening Special screening for malignant neoplasms, colon documented in this encounter [facility] Work Phone: History of Present illness Narrativebuspar, taylorstid [facility] Work Phone: History of Present illness Narrativemagda nguyen [facility] Work Phone: History of Present illness NarrativeSalfonso presents today for follow up of abdominal pain and post gallbladder diarrhea. It had improved when she was taking the medicine every day the first week. She forgot 2 days this weekend and felt sick on Sunday. She is going to try and make a stronger effort at taking it every morning. she has appt with Urologist Physician in November. The buspar is making her have vivid dreams and affecting her sleep. We reviewed her labs, she has mild hyperlipidemia-likely will improve with consistent colestipol regimen.-[facility] Work Phone: History of Present illness Narrative* MARGARETTE FRY is a 44 year old female, new patient, presenting for allergies and food reactions. MARGARETTE was referred by Megan Kaur CNP for evaluation and management. 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 She has issues recently with foods she used to eat. will have . She has not tried Lactaid. * She was also Dxd with a mild gluten intolerance by EGD. She avoids gluten for the most part. * It was thought her Sx were attributed to her absent gallbladder. She had a bile buildup, was started on colestipol and she has improved. * She C/O of waking with nasal congestion and sneezing. The congestion resolves throughout the day onits own. She had dental care by Dr. Jauregui, and had an x-ray showing sinus issues. [facility] Work Phone: History of Present illness Narrative* She presents today for routine follow up and poison tamera. 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 She has been crying more easily than in the past. She feels irritable. She is feeling hot. She denies anxiety or depression. She has been breaking out more, feeling more tired, PAUL's with menses, painful periods and irregular bleeding. She is on OCP from [facility] [facility]. She has PCOS. [facility] [facility] orders mamm. Has appt with new [employer] Dr. Gay in [place] 10/25/21. She had an US 2 years ago and it did show some thickened endometrium and irregularity-possible polyp. She has had fibroids removed in the past. They did not do anything further at that time for her symptoms or the findings. The symptoms have gotten worse. * Urologist Physician-recommended lactaid. Also, told her to resume gluten. She has not changed her diet. She limits her gluten. * Hyperlipidemia-taking colestipol for diarrhea. Due for labs. * Diarrhea-taking colestipol daily -[facility] Work Phone: History of Present illness NarrativePatient is seen postop visit status post lap appendectomy. She denies any issues. She states she iseating and moving her bowels without difficulty. She is not taking anything for pain and states shehas back to her usual activity.[facility] Work Phone: Summary Purpose Family History Grandmother Name Dates Details Family history of malignant neoplasm of breast(V16.3, Z80.3) Status:Active Mother Name Dates Details Family history of hypertensi on(V17.49, Z82.49) Status:Active Family history of obesity(V1 8.19, Z83.49) Status:Active Father Name Dates Details Family history of malignant neoplasm of prostate(V16.42, Z80.42) Status:Active Grandmother Name Dates Details Family history of malignant neoplasm of breast(V16.3, Z80.3) Status:Active Mother Name Dates Details Family history of hypertensi on(V17.49, Z82.49) Status:Active Family history of obesity(V1 8.19, Z83.49) Status:Active Father Name Dates Details Family history of malignant neoplasm of prostate(V16.42, Z80.42) Status:Active Unknown Family Member Name Dates Details Family history of malignant neoplasm of breast: Grandmother(V16.3, Z80.3) Status:Active Family history of hypertensi on: Mother(V17.49, Z82.49) Status:Active Family history of obesity: M other(V18.19, Z83.49) Status:Active Family history of malignant neoplasm of prostate: Father(V16.42, Z80.42) Status:Active Unknown Family Member Name Dates Details Family history of malignant neoplasm of breast: Grandmother(V16.3, Z80.3) Status:Active Family history of hypertensi on: Mother(V17.49, Z82.49) Status:Active Family history of obesity: M other(V18.19, Z83.49) Status:Active Family history of malignant neoplasm of prostate: Father(V16.42, Z80.42) Status:Active Unknown Family Member Name Dates Details Family history of malignant neoplasm of breast: Grandmother(V16.3, Z80.3) Status:Active Family history of hypertensi on: Mother(V17.49, Z82.49) Status:Active Family history of obesity: M other(V18.19, Z83.49) Status:Active Family history of malignant neoplasm of prostate: Father(V16.42, Z80.42) Status:Active Unknown Family Member Name Dates Details Family history of malignant neoplasm of breast: Grandmother(V16.3, Z80.3) Status:Active Family history of hypertensi on: Mother(V17.49, Z82.49) Status:Active Family history of obesity: M other(V18.19, Z83.49) Status:Active Family history of malignant neoplasm of prostate: Father(V16.42, Z80.42) Status:Active Family history of asthma: Mo ther, Brother(V17.5, Z82.5) Status:Active Seasonal allergies: Mother Status:Active Family history of eczema: Fa ther(V19.4, Z84.0) Status:Active Family history of cardiac di sorder: Father(V17.49, Z82.49) Status:Active Unknown Family Member Name Dates Details Family history of malignant neoplasm of breast: Grandmother(V16.3, Z80.3) Status:Active Family history of hypertensi on: Mother(V17.49, Z82.49) Status:Active Family history of obesity: M other(V18.19, Z83.49) Status:Active Family history of malignant neoplasm of prostate: Father(V16.42, Z80.42) Status:Active Family history of asthma: Mo ther, Brother(V17.5, Z82.5) Status:Active Seasonal allergies: Mother Status:Active Family history of eczema: Fa ther(V19.4, Z84.0) Status:Active Family history of cardiac di sorder: Father(V17.49, Z82.49) Status:Active Unknown Family Member Name Dates Details Family history of malignant neoplasm of breast: Grandmother(V16.3, Z80.3) Status:Active Family history of hypertensi on: Mother(V17.49, Z82.49) Status:Active Family history of obesity: M other(V18.19, Z83.49) Status:Active Family history of malignant neoplasm of prostate: Father(V16.42, Z80.42) Status:Active Family history of asthma: Mo ther, Brother(V17.5, Z82.5) Status:Active Seasonal allergies: Mother Status:Active Family history of eczema: Fa ther(V19.4, Z84.0) Status:Active Family history of cardiac di sorder: Father(V17.49, Z82.49) Status:Active Unknown Family Member Name Dates Details Family history of malignant neoplasm of breast: Grandmother(V16.3, Z80.3) Status:Active Family history of hypertensi on: Mother(V17.49, Z82.49) Status:Active Family history of obesity: M other(V18.19, Z83.49) Status:Active Family history of malignant neoplasm of prostate: Father(V16.42, Z80.42) Status:Active Family history of asthma: Mo ther, Brother(V17.5, Z82.5) Status:Active Seasonal allergies: Mother Status:Active Family history of eczema: Fa ther(V19.4, Z84.0) Status:Active Family history of cardiac di sorder: Father(V17.49, Z82.49) Status:Active Unknown Family Member Name Dates Details Family history of malignant neoplasm of breast: Grandmother(V16.3, Z80.3) Status:Active Family history of hypertensi on: Mother(V17.49, Z82.49) Status:Active Family history of obesity: M other(V18.19, Z83.49) Status:Active Family history of malignant neoplasm of prostate: Father(V16.42, Z80.42) Status:Active Family history of asthma: Mo ther, Brother(V17.5, Z82.5) Status:Active Seasonal allergies: Mother Status:Active Family history of eczema: Fa ther(V19.4, Z84.0) Status:Active Family history of cardiac di sorder: Father(V17.49, Z82.49) Status:Active Unknown Family Member Name Dates Details Family history of malignant neoplasm of breast: Grandmother(V16.3, Z80.3) Status:Active Family history of hypertensi on: Mother(V17.49, Z82.49) Status:Active Family history of obesity: M other(V18.19, Z83.49) Status:Active Family history of malignant neoplasm of prostate: Father(V16.42, Z80.42) Status:Active Family history of asthma: Mo ther, Brother(V17.5, Z82.5) Status:Active Seasonal allergies: Mother Status:Active Family history of eczema: Fa ther(V19.4, Z84.0) Status:Active Family history of cardiac di sorder: Father(V17.49, Z82.49) Status:Active Unknown Family Member Name Dates Details Family history of malignant neoplasm of breast: Grandmother(V16.3, Z80.3) Status:Active Family history of hypertensi on: Mother(V17.49, Z82.49) Status:Active Family history of obesity: M other(V18.19, Z83.49) Status:Active Family history of malignant neoplasm of prostate: Father(V16.42, Z80.42) Status:Active Family history of asthma: Mo ther, Brother(V17.5, Z82.5) Status:Active Seasonal allergies: Mother Status:Active Family history of eczema: Fa ther(V19.4, Z84.0) Status:Active Family history of cardiac di sorder: Father(V17.49, Z82.49) Status:Active Unknown Family Member Name Dates Details Family history of malignant neoplasm of breast: Grandmother(V16.3, Z80.3) Status:Active Family history of hypertensi on: Mother(V17.49, Z82.49) Status:Active Family history of obesity: M other(V18.19, Z83.49) Status:Active Family history of malignant neoplasm of prostate: Father(V16.42, Z80.42) Status:Active Family history of asthma: Mo ther, Brother(V17.5, Z82.5) Status:Active Seasonal allergies: Mother Status:Active Family history of eczema: Fa ther(V19.4, Z84.0) Status:Active Family history of cardiac di sorder: Father(V17.49, Z82.49) Status:Active Advance Directives No Advanced Directives Records FoundNo Advanced Directives Records FoundNo Advanced Directives Records FoundNo Advanced Directives Records FoundNo Advanced Directives Records FoundNo Advanced Directives Records Found Chief Complaint Pt presents for routine check up; c/o anxiety; abdominal pain and diarrhea after eating; would likeallergy testing because waking with congestion; sporadic right side chest pain after dinner and in the evenings; due for labs.Pt presents for routine check up; c/o anxiety; abdominal pain and diarrhea after eating; would likeallergy testing because waking with congestion; sporadic right side chest pain after dinner and in the evenings; due for labs.Pt presents for lab and medication f/u; c/o having strange dreams and not sleeping.NPV for allergies and food reactionsPt presents for lab and medication f/u; c/o having strange dreams and not sleeping.Pt presents for lab and medication f/u; c/o having strange dreams and not sleeping.Pt presents for routine check up; med review and refills; c/o poison tamera.Post op #1 laparoscopic appendectomy. Denies fever, chills and nausea. Denies drainage or redness. Reason for Referral Specialty Diagnoses / Procedures Referred By Aj cloud Referred To Contact Zackary Zendejas DO [address] [facility], [place] [address] Referral ID Status Reason Start Date Expiration Date V isits Requested Visits Authorized [id number] Pending Review 01/19/2023 01/19/2024 1 1 Specialty Diagnoses / Procedures Referred By Aj cloud Referred To Contact Gastroenterology Diagnoses Colon cancer screening Procedures Colonoscopy Screening; Average Risk Patient CA COLONOSCOPY FLX DX W/COLLJ SPEC WHEN PFRMD CA COLON CA SCRN NOT HI RSK IND CA COLORECTAL SCRN; HI RISK IND CA COLONOSCOPY W/BIOPSY SINGLE/MULTIPLE CA COLSC FLX W/RMVL OF TUMOR POLYP LESION SNARE TQ CA COLSC FLX W/REMOVAL LESION BY HOT BX FORCEPS Zackary Zendejas, DO [address] [facility] [place] [address] Referral ID Status Reason Start Date Expiration Date V isits Requested Visits Authorized [id number] Authorized 12/29/2022 12/29/2023 1 1 Specialty Diagnoses / Procedures Referred By Contac t Referred To Contact Diagnoses Nausea with vomiting, unspecified Zackary Zendejas, DO [address] [facility], [facility] [address] [place] [address] Additional Source Comments INFORMATION SOURCE (unrecogn ized section and content) DATE CREATED AUTHOR AUTHOR'S ORGANIZ ATION 11/22/2021 [facility] [place] DATE CREATED AUTHOR AUTHOR'S ORGANIZ ATION 11/22/2021 [employer] DATE CREATED AUTHOR AUTHOR'S ORGANIZ ATION 12/11/2021 [facility] DATE CREATED AUTHOR AUTHOR'S ORGANIZ ATION 01/23/2023 [facility] DATE CREATED AUTHOR AUTHOR'S ORGANIZ ATION 01/25/2023 [facility] Public Transportation 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 Teams (unrecognized sec tion and content) 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 Relationship Specialty Start Date End Date Nichole Tamayo APRN-[employer]BI[employer]KE [employer]ONDER [address] [facility] [address] [place] [address] PCP - General 04/24/22 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 This clinical summary was aggregated from multiple sources. Caution should be exercised in using it in the provision of clinical care. This summary normalizes information from multiple sources, and as a consequence, information in this document may materially change the coding, format and clinical context of patient data. In addition, data may be omitted in some cases. CLINICAL DECISIONS SHOULD BE BASED ON THE PRIMARY CLINICAL RECORDS. [facility] [employer] [facility]. provides no warranty or guarantee of the accuracy or completeness of information in this document.
== END | disposition home or self-care (01) ==
LOC: OPBI 07:25
PROVIDERS: PCP Nurse Practitioner Family; Referring Provider Obstetrics & Gynecology; Visit Provider Obstetrics & Gynecology
DX: Z12.31 Encounter for screening mammogram for malignant neoplasm of breast (principal); Z80.3 Family history of malignant neoplasm of breast
CPT/HCPCS: 77063; 77067

== ENCOUNTER → 2024-04-08 | Outpatient (CLI) | payer OTHER, BC, SELFPAY ==
--- NOTE | 2024-04-08 07:11 | BI_ITS ---
PROCEDURE: SCRN MAMM (CAD)W/YUSUF BILAT REASON FOR EXAM: F, Age 48 y/o, routine mammogram. Maternal grandmother with breast cancer. TECHNIQUE: Bilateral screening digital breast tomosynthesis with 2D and 3D images. Computer aided detection. COMPARISON: Prior exam(s) dating back to comparison is made with prior study dated March 26, 2023.. FINDINGS: The breasts are heterogeneously dense which may obscure small masses. Stable small benign-appearing bilateral axillary lymph nodes. No suspicious masses, areas of developing architectural distortion, or suspicious calcifications. BI/SCRN MAMM (CAD)W/YUSUF BILAT IMPRESSION: BI-RADS 2: BENIGN. RECOMMEND ANNUAL MAMMOGRAPHIC SCREENING. Follow-up code: Routine Follow-up The patient will be notified of the results by letter. Reading Location: [place] [id number]
== END | disposition home or self-care (01) ==
PROVIDERS: PCP Nurse Practitioner Family; Referring Provider Obstetrics & Gynecology; Visit Provider Obstetrics & Gynecology
DX: Z12.31 Encounter for screening mammogram for malignant neoplasm of breast (principal); Z80.3 Family history of malignant neoplasm of breast
CPT/HCPCS: 77063; 77067